=== PATIENT | male | born 1955 | race Caucasian/White ===

== ENCOUNTER 2024-01-25 16:49 | Inpatient (IN) ==
[2024-01-25 19:02] LABS: BASOPHILS # (AUTO) 0.1 X10^3/uL (0.0-0.1); EOSINOPHILS # (AUTO) 0.1 x10^3/uL (0.0-0.2); EOSINOPHILS % (AUTO) 0.8 % (0.9-2.9); HEMATOCRIT 36.5 % (42.0-54.0); HEMOGLOBIN 12.7 g/dL (13.5-18.0); LYMPHOCYTES # (AUTO) 2.1 X10^3/uL (1.3-2.9); LYMPHOCYTES % (AUTO) 27.1 % (21.0-51.0); MEAN CORPUSCULAR HGB CONC 34.8 g/dL (33.0-35.0); MEAN CORPUSCULAR VOLUME 97.7 fL (80.0-100.0); MEAN PLATELET VOLUME 6.5 fL (7.4-11.0); MONOCYTES # (AUTO) 0.7 x10^3/uL (0.3-0.8); MONOCYTES % (AUTO) 8.4 % (0.0-13.0); NEUTROPHILS # (AUTO) 4.9 x10^3/uL (2.2-4.8); NEUTROPHILS % (AUTO) 62.7 % (42.0-75.0); PLATELET COUNT 321 X10^3/uL (150.0-450.0); RED BLOOD COUNT 3.73 X10^6/uL (4.7-6.0); RED CELL DISTRIBUTION WIDTH 12.9 % (11.6-16.5); WHITE BLOOD COUNT 7.8 X10^3/uL (3.6-10.0)
[2024-01-25 19:08] LABS: BLOOD UREA NITROGEN 10 mg/dL (7-18); CALCIUM 8.6 mg/dL (8.5-10.1); CARBON DIOXIDE 31.4 mmol/L (21-32); CHLORIDE 97 mmol/L (98-107); CREATININE 0.86 mg/dL (0.70-1.30); GLUCOSE 91 mg/dL (65-99); SODIUM 132 mmol/L (136-145); eGFR NON BLACK RACES > 60 (>60)
[2024-01-25] MEDS ORDERED: NITROSTAT SL PRN (22:10)
[2024-01-25] MEDS ORDERED: PREDNISONE TAB 10 MG PO ONE (22:41)
[2024-01-25] MEDS ORDERED: LOVENOX INJ 80 MG SYR SC SCH (23:00)
[2024-01-25 23:08] VITALS: BMI 17.9
--- NOTE | 2024-01-25 23:12 | DR.H&P ---
H&P History & Physical for Day of: H&P Date: 01/25/24 Chief Complaint Chief Complaint: 77 male with rest pain both legs left greater than right and s/p right seen by me in late October 2023. History of failed left femoral popliteal bypass. CTA showed severe disease both superficial femoral arteries and diffuse occlusion of the trifurcation arteries of both legs . History of Present Illness History of Present Illness: as above Past Medical History Past Medical History: Coronary Artery Disease (hx of CABG), Dyslipidemia, GERD and Hypertension Past Surgical History Surgical History: Appendectomy, Ortho Surgery (total hip replacement ) and Other (failed left femoral popliteal artery bypass) Social History Does patient currently use any type of tobacco product: No Have you used tobacco products in the last 12 months: No Alcohol Use: None Medications Home Medications: see attached aspirin 81 mg daily Eliquis 5 mg BID Pletal 100 mg BID Lisinopril 20 mg daily Metoprolol Succinate 50 mg daily NTG 0.4 mg q 5 min PRN chest pain Pepcid 20 mg BID Atorvastin 80 mg po daily Allergies Allergies Allergy/AdvReac Type Severity Reaction Status Date / Time Iodinated Contrast Media Allergy Verified 01/25/24 22:29 [IVP DYE] Labs 01/25/24 18:50 01/25/24 18:50 Labs: Laboratory WBC 7.8 X10^3/uL (3.6-10.0) 01/25/24 18:50 RBC 3.73 X10^6/uL (4.7-6.0) L 01/25/24 18:50 Hgb 12.7 g/dL (13.5-18.0) L 01/25/24 18:50 Hct 36.5 % (42.0-54.0) L 01/25/24 18:50 MCV 97.7 fL (80.0-100.0) 01/25/24 18:50 MCH 34.0 pg (27.0-34.0) 01/25/24 18:50 MCHC 34.8 g/dL (33.0-35.0) 01/25/24 18:50 RDW 12.9 % (11.6-16.5) 01/25/24 18:50 Plt Count 321 X10^3/uL (150.0-450.0) 01/25/24 18:50 MPV 6.5 fL (7.4-11.0) L 01/25/24 18:50 Neut % (Auto) 62.7 % (42.0-75.0) 01/25/24 18:50 Lymph % (Auto) 27.1 % (21.0-51.0) 01/25/24 18:50 [place] % (Auto) 8.4 % (0.0-13.0) 01/25/24 18:50 Eos % (Auto) 0.8 % (0.9-2.9) L 01/25/24 18:50 Baso % (Auto) 1.0 % (0.2-1.0) 01/25/24 18:50 Neut # (Auto) 4.9 x10^3/uL (2.2-4.8) H 01/25/24 18:50 Lymph # (Auto) 2.1 X10^3/uL (1.3-2.9) 01/25/24 18:50 [place] # (Auto) 0.7 x10^3/uL (0.3-0.8) 01/25/24 18:50 Eos # (Auto) 0.1 x10^3/uL (0.0-0.2) 01/25/24 18:50 Baso # (Auto) 0.1 X10^3/uL (0.0-0.1) 01/25/24 18:50 Absolute Nucleated RBC 0.0 /100WBC 01/25/24 18:50 Sodium 132 mmol/L (136-145) L 01/25/24 18:50 Corrected Sodium TNP 01/25/24 18:50 Potassium 4.0 mmol/L (3.5-5.1) 01/25/24 18:50 Chloride 97 mmol/L (98-107) L 01/25/24 18:50 Carbon Dioxide 31.4 mmol/L (21-32) 01/25/24 18:50 BUN 10 mg/dL (7-18) 01/25/24 18:50 Creatinine 0.86 mg/dL (0.70-1.30) 01/25/24 18:50 Est GFR (MDRD) Af Amer > 60 (>60) 01/25/24 18:50 Est GFR (MDRD) Non-Af > 60 (>60) 01/25/24 18:50 Glucose 91 mg/dL (65-99) 01/25/24 18:50 Calcium 8.6 mg/dL (8.5-10.1) 01/25/24 18:50 Review of Systems Constitutional: See HPI Eyes: No Symptoms Reported ENT: No Symptoms Reported Respiratory: No Symptoms Reported Cardiovascular: See HPI Gastrointestinal: No Symptoms Reported Genitourinary: No Symptoms Reported Musculoskeletal: No Symptoms Reported Skin: No Symptoms Reported Neurological: No Symptoms Reported Physical Exam Vital Signs: Vital Signs Temperature 97.8 F Temperature 97.2 F Pulse Rate [Right Brachial] 64 Pulse Rate [Right Brachial] 65 Respiratory Rate 20 Respiratory Rate 18 Blood Pressure [Right Arm] 156/73 Blood Pressure [Right Arm] 129/72 O2 Sat by Pulse Oximetry 100 O2 Sat by Pulse Oximetry 96 Oriented: Normal, Time, Person and Place Eyes: Normal Ear: Normal Nose: Normal Throat: Normal Respiratory: Clear Throughout Cardiovascular: Normal and Other (palpable femoral pulses bilaterally, all pulses distally both legs absent ) : Normal Auscultation: Bowel Sounds: Normal Palpation: Normal Tenderness: Normal Skin: Normal Musculoskeletal: Normal Psychiatric: Normal Mood Description: Anxious Affect: Normal Speech Pattern: Clear Assessment/Plan (1) Atherosclerosis of [place] arteries of extremities with rest pain, left leg: Status: Acute Plan: Will begin therapuetic Lovenox, repeat CT angiogram with runoff (2) Atherosclerosis of [place] arteries of extremities with rest pain, right leg: Status: Acute Plan: as above (3) Essential (primary) hypertension: Status: Acute Plan: home medications (4) Hyperlipidemia: Status: Acute Plan: home medications (5) Gastro-esophageal reflux disease without esophagitis: Status: Acute Plan: home medications Review H&P Reviewed: Yes Patient was examined?: Yes
[2024-01-25] MEDS: PREDNISONE TAB 10 MG PO SCH (23:28)
[2024-01-25] MEDS: LOVENOX INJ 60 MG SYR SC SCH (23:45)
[2024-01-25] MEDS: LR 1,000 ML IV 1,000 ML IV SCH (23:47)
--- NOTE | 2024-01-26 04:59 | EKG ---
Test Reason : Protocol for procedure Blood Pressure : */* mmHG Vent. Rate : 71 BPM Atrial Rate : 71 BPM P-R Int : 140 ms QRS Dur : 82 ms QT Int : 382 ms P-R-T Axes : 72 -50 74 degrees QTc Int : 415 ms Sinus rhythm with marked sinus arrhythmia Left axis deviation Abnormal ECG No previous ECGs available Confirmed by Robb Tyler MD ([id number]) on 01/26/2024 5:47:40 AM Referred By: Confirmed By: Robb Tyler MD
[2024-01-26] MEDS: PREDNISONE TAB 10 MG PO SCH ×2 (05:23→11:50)
[2024-01-26] MEDS: LIPITOR TAB 80 MG PO SCH (10:08)
[2024-01-26] MEDS: ASPIRIN EC 81 MG PO SCH (10:08)
[2024-01-26] MEDS: PROTONIX TAB 40 MG PO SCH (10:08)
[2024-01-26] MEDS: ZESTRIL TAB 20 MG PO SCH (10:08)
[2024-01-26] MEDS: TOPROL XL PO SCH (10:09)
[2024-01-26] MEDS ORDERED: ZESTRIL TAB 20 MG ONE (11:24)
[2024-01-26] MEDS: LOVENOX INJ 80 MG SYR SC SCH (11:42)
[2024-01-26] MEDS: BENADRYL CAP 50 MG PO SCH (11:51)
--- NOTE | 2024-01-26 13:30 | CT ---
EXAM: CTA AORTA WITH RUNOFF HISTORY: CRITICAL ISCHEMIA LLE; COMPARISON: November 17, 2019 TECHNIQUE: CTA abdomen and pelvis with runoff without and with contrast was performed initial noncontrast phase is followed by an arterial contrast bolus. Imaging was obtained from the upper abdomen to the level of the foot and ankle. The sequences are reconstructed with multi planer reformats as well as volume rendered MIP and/or 3D reconstruction. FINDINGS: Noncontrast phase generalized calcified atherosclerosis of the aorta, mesenteric and iliofemoral trib utaries. Nonobstructing renovascular calcifications associated with the right kidney. Multiple cons ecutive stents comprising a left fem-pop bypass are observed. Atherosclerotic plaque is demonstrated within the left lower extremity from the common femoral artery through the distal superficial femora l artery. Surgical clips are also demonstrated within the left popliteal fossa. No free fluid or fr ee air is identified. CTA postcontrast phase: Visualized portions of the abdomen and pelvis reveal moderate stool burden of the colon which should be correlated clinically for constipation. No free fluid is identified. No acute inflammatory changes are observed. There is no abnormal bowel wall thickening identified. 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 There is circumferential plaque within the SMA and branches resul ting in multifocal stenosis of [id number] severity within the field of view no greater than 50% . The celiac axis is not fully imaged. No evidence of aortic occlusion. Imaging occurs below the level of the renal arteries. Plaque is contiguous with bilateral common iliac arteries, internal and external iliac arteries. Right iliac arteries: Severe generalized calcification with a widely patent common iliac artery stent and less than 50% stenosis distal to the stent. 50-69% stenosis of the internal iliac artery and 50- 69% stenosis distally along the external iliac artery. Left iliac arteries: Severe generalized calcification with a widely patent common iliac artery stent. 50-69% stenosis throughout the internal iliac artery. Less than 50% stenosis of the external iliac a rtery. RIGHT LOWER EXTREMITY: Common femoral artery: Severe atherosclerosis with 50-69% stenosis just above the vessel bifurcation. Profunda femoral artery: No significant abnormality. Superficial femoral artery: The majority of the vessel is occluded. Reconstitution of flow along the distal 3rd of the thigh via collaterals. Popliteal artery: Mild atherosclerosis resulting in less than 50% stenosis. Anterior tibial artery: Focal greater than 70% stenosis near the vessel origin. Vessel appears paten t through the distal leg. There is limited visualization of contrast within the most distal aspect o f the vessel as it continues into the dorsalis pedis. Tibioperoneal trunk: Moderately calcified with 50-69% stenosis. Posterior tibial artery: Moderate calcification along the proximal 3rd of the vessel resulting in 50- 69% stenosis. Multifocal plaque accumulation through the foot. The vessel is patent. Peroneal artery: Proximal branch appears adequately opacify via contrast. There is tapering of the v essel and inconspicuous contrast opacification within the distal vessel just above the ankle. Additional findings: Expected positioning of a right hip arthroplasty. LEFT LOWER EXTREMITY: Common femoral artery: Severe atherosclerosis resulting in less than 50% stenosis. Profunda femoral artery: Mild calcification resulting in less than 50% stenosis. Superficial femoral artery: Occlusion of the [place] SFA as well occlusion of the majority of a femora l-popliteal artery bypass graft Popliteal artery: Occluded. Anterior tibial artery: Occluded. Tibioperoneal trunk: Occluded. Posterior tibial artery: Occluded. Peroneal artery: Occluded. Additional findings: None. No gas within the soft tissues. No evidence of edema. IMPRESSION: Chronic occlusion of the majority of the [place] arteries of the left lower extremity without distal c onstitution of flow. The fem-pop bypass graft is also occluded. Occlusion of the majority of the right superficial femoral artery with distal reconstitution of flow through deep collaterals. Single-vessel runoff of the right lower extremity through the posterior ti bial artery. Proximal DAE and peroneal artery segments are patent proximally but distal segments shadia ear diminutive with tapering of contrast opacification. Additional findings as detailed above. THIS IS AN ELECTRONICALLY VERIFIED FINAL REPORT 01/26/2024 1:27 PM - Electronically signed by Lemuel Jean MD
[2024-01-26] MEDS: MILK OF MAGNESIA PO SCH (16:05)
--- NOTE | 2024-01-26 17:53 | NOTE.SOAP ---
Soap Note Note for Day of Date of Exam: 01/26/24 Subjective Data Subjective Data: Patient had repeat CTA of aorta with b/l runoff and it shows [place] vessels and left fem-pop bypass left leg to be occluded Objective Data Temperature: 98.0 F Pulse Rate: 93 Respiratory Rate: 20 Blood Pressure: 114/64 O2 Sat by Pulse Oximetry: 98 Objective Data: No palpable pulses either ankle , no wounds either leg. Assessment Assessment: b/l severe limb threatening ischemia . Plan Plan: Will plan aortogram and arteriogram left leg as it is the most symptomatic . Consent obtained
[2024-01-26] MEDS: COLACE CAP 100 MG PO SCH (21:17)
--- NOTE | 2024-01-27 06:24 | RAD ---
EXAM: CHEST, 1 VIEW HISTORY: PRE OP-LEFT LOWER LEG CRITICAL ISCHEMIA ; COPD, CAD, HTN SX: APPY, TRIPLE BYPASS COMPARISON: No relevant prior studies were available for comparison at the time of interpretation. TECHNIQUE: CHEST, 1 VIEW FINDINGS: Chest: Lines and tubes: None Mediastinum: Median sternotomy wires are present. Cardiac shadow is normal in size. Pulmonary vessels: No pulmonary vascular congestion. Lung jerome: No suspicious airspace opacity. Pleura: No effusion. No pneumothorax. Bones and soft tissues: No acute osseous or soft tissue abnormality. IMPRESSION: 1. No acute cardiopulmonary abnormality THIS IS AN ELECTRONICALLY VERIFIED FINAL REPORT 01/27/2024 6:21 AM - Electronically signed by Eddi Hayden MD
[2024-01-27] MEDS: PREDNISONE TAB 20 MG PO ONE (09:20)
[2024-01-27] MEDS: ZESTRIL TAB 20 MG ONE (09:20)
[2024-01-27] MEDS: NS 100 ML IV 100 ML ONE (09:49)
[2024-01-27] MEDS: LR 1,000 ML IV 1,000 ML IV ONE (09:49)
[2024-01-27] MEDS: ANCEF VIAL 1 GRAM ONE (09:49)
[2024-01-27] MEDS: MARCAINE 0.5% ONE (10:07)
[2024-01-27] MEDS: HEPARIN SODIUM IN D5W 75,000 UNITS/1,500 ML BAG ONE (10:07)
[2024-01-27] MEDS: VERSED ONE (10:10)
[2024-01-27] MEDS: DIPRIVAN VIAL 20 ML ONE ×2 (10:11→10:52)
[2024-01-27] MEDS ORDERED: KETAMINE HCL ONE (10:15)
[2024-01-27] MEDS: SOLU MEDROL 500 MG ONE (10:35)
[2024-01-27] MEDS: HEPARIN SODIUM INJ 5000 UNITS ONE (10:36)
--- NOTE | 2024-01-27 11:43 | OR.IMMED ---
IMMEDIATE POST-OP NOTE Immediate Post-Op Note Date of surgery/procedure: 01/27/24 Pre-Op Diagnosis: critical ischemia left leg , all arteries below fem pop bypass occluded Post-Op Diagnosis: severe stenosis of stent in distal fem- pop bypass at adductor canal, stenosis left iliac stent Procedure: diagnostic aortogram, arteriogram left leg, atherectomy and drug eluting stenting of the left adductor canal stenosis, angioplasty left common iliac artery stent Description of Procedure: dictated Surgeon/Med Asst: Naty Findings: severe stenosis of stent in distal femoral popliteal bypass ( Gortex) and in popliteal artery , stenosis of left common iliac artery stent. Estimated Blood Loss: < 50 cc Complications: none Progress Notes: to floor, begin diet and home meds, discharge home later today.
[2024-01-27] MEDS: FENTANYL VIAL INJ 100 mcg ONE (11:49)
[2024-01-27] MEDS: VISIPAQUE 100 ML ONE (11:49)
[2024-01-27] MEDS: VISIPAQUE 50 ML ONE (11:50)
[2024-01-27] MEDS: PERCOCET TAB 5/325 MG PO PRN (19:14)
--- NOTE | 2024-01-27 20:35 | DR.OPNOTE ---
OP NOTE Pre-Op Diagnosis: critical ischemia left leg Post-Op Diagnosis: same Procedure Date Date Of Procedure: 01/27/24 Procedure: PROCEDURE : DIAGNOSTIC AORTGRAM, ARTERIOGRAM LEFT LEG, ATHERECTOMY AND DRUG ELUTING STENT OF DISTAL STENT IN FEMORAL POPLITEAL ARTERY BYPASS AND NEAR TOTAL OCCLUSION OF [place] TRIBE POLITEAL ARTERY JUST BELOW THE ADDUCTOR CANAL AND ANGIOPLASTY LEFT COMMON ILIAC ARTERY STENT NARRATIVE : The patient was taken to the operative suite and placed in the supine position. The right groin and entire left leg were prepped and draped in sterile fashion. The patient was given intravenous sedation supervised by myself. Time out for the procedure obtained. Ultrasound used to identify the right femoral artery and the skin overlying it infiltrated with 0.5% Marcaine. Ultrasound then used to guide puncture of the right femoral artery and a 0.012 inch guide wire was placed. Incision made over the guide wire at the skin edge with a # 11 knife blade and a micro sheath placed over the guide wire into the right femoral artery The small guidewire exchanged for a 0.035 inch Advantage glide wire and the micro sheath exchanged for a 5 Fr vascular sheath. Patient given 5000 units of intravenous heparin. Omni catheter was placed over the guide wire into the aorta and diagnostic aortogram carried out with the power injector showing bilateral iliac artery stents and severe stenosis of the proximal left common iliac artery . Omni catheter was used to steer the guide wire down the left common iliac artery to the distal left external iliac artery . Omni catheter was exchanged for a Ridg[place] catheter and sequential arteriograms carried out of the left lower extremity showing completely occcluded [place] left superficial femoral artery with intact left Gortex femoral popliteal bypass graft with severe stenosis at the distal end of the bypass graft where a stent had been placed as well as severe stenosis, near total occlusion of the [place] popliteal artery just beyond the graft inside the bypass conduit. The tibial peroneal trunk is normal. The anterior tibial artery is normal all the way to the ankle. Both the peroneal and posterior tibial arteries are occluded after takeoff with no reconstitution of either of them in an antegrade fashion. There was retrograde filling of the left posterior tibial artery. The 5 Fr sheath in the right groin then exchanged for a 7 Fr Catapult destination sheath which was parked in the mid portion of the femoral popliteal bypass graft .Ridgely catheter and the guide wire were used to traverse the arteries of the left leg ultimately ending in the left proximal peroneal artery . This was selective catheterization. 0.035 inch wire removed and exchanged for a 0.014 inch wire. Over this wire we placed the Jet Stream atherectomy device and performed atherectomy of the stent in the distal femoral popliteal bypass graft and the [place] popliteal artery. At this point we placed an Sudha 6x 60 mm drug eluting stent over the distal stent in the the popliteal artery . This stent was balloon dilated with a Sheldon 6x 100 mm angioplasty balloon. At the completion of this a follow up arteriogram showed good result .The sheath pulled back into the right common iliac artery and over the 0.014 inch wire the proximal left common iliac artery stent was balloon dilated with the 6x 100 mm Sheldon balloon. Repeat aortogram here showed excellent results . All wires and devices removed. The destination sheath exchanged for an Angioseal device used to close the puncture of the right femoral artery. Dressing applied to the left groin. The patient taken to [facility] in good condition. Type of Anesthesia: Local (0.5% Marcaine) Anesthesia Comment: plus MAC Findings: completely occluded left superficial femoral artery with intact left Gortex femoral -popliteal artery, severe stenosis of stent in the distal left fem-pop bypass and near complete occlusion of left popliteal artery with runoff to left ankle via an intact left anterior tibial artery with both left peroneal and left posterior tibial arteries occluded after takeoff with no reconstitution in antegrade fashion, reconstitution of the left posterior tibial artery via the left anterior tibial artery in retrograde fashion. Severe stenosis of the left common iliac artery stent. Type of Fluids Used:: Lactated Ringers Total Amount of Fluid Infused:: 500 cc Urine output: 80 cc EBL: < 50 cc Hardware: Euvia 6mmx 60 mm drug eluting stent Complications:: none Needle/Sponge Count:: correct Disposition/Condition: Pt. tolerated procedure without difficulty. Taken to [facility] in stable condition.
[2024-01-28] MEDS: ZESTRIL TAB 20 MG ONE (09:22)
[2024-01-28] MEDS ORDERED: TYLENOL 325 MG TAB PO PRN (13:42)
[2024-01-28] MEDS: CATAPRES TAB 0.1 MG PO ONE (13:47)
--- NOTE | 2024-01-28 18:05 | NOTE.SOAP ---
Soap Note Note for Day of Date of Exam: 01/28/24 Subjective Data Subjective Data: After arterial intervention left leg, all rest pain resolved on left , Still with right leg rest pain and CTA shows complete total occlusion of the right SFA. Had some hypertension earlier, resolved with his regular anti- hypertensives and some po Clonidine . Objective Data Temperature: 98.1 F Pulse Rate: 81 Respiratory Rate: 18 Blood Pressure: 134/65 O2 Sat by Pulse Oximetry: 93 Objective Data: biphasic flow left anterior tibial artery Needle stick right groin is healing Assessment Assessment: s/p revascularization left leg for escalating ischemic rest pain. Plan Plan: Continue therapeutic Lovenox and will plan right leg arterial intervention on 01/31/2024
[2024-01-29] MEDS ORDERED: ZOFRAN INJ 4 MG VIAL IVP PRN (07:57)
[2024-01-29] MEDS: ZESTRIL TAB 20 MG ONE ×2 (09:36→18:02)
--- NOTE | 2024-01-29 11:41 | NOTE.SOAP ---
Soap Note Note for Day of Date of Exam: 01/29/24 Subjective Data Subjective Data: S/P revascularization left leg with resolution of rest pain. For revascularization right leg on 01/31/2024. BP systolic has been > 170 mm of HG. Objective Data Temperature: 97.1 F Pulse Rate: 81 Respiratory Rate: 20 Blood Pressure: 176/88 O2 Sat by Pulse Oximetry: 93 Objective Data: Left foot warm with biphasic AT doppler signal Assessment Assessment: resolved left leg critical ischemia, plan for right leg revascularization in 2 days Plan Plan: as above , increase lisinopril to 40 mg daily
[2024-01-29] MEDS: ZESTRIL TAB 20 MG PO ONE (13:44)
[2024-01-30] MEDS ORDERED: ZESTRIL TAB 20 MG ONE (08:32)
[2024-01-30] MEDS: ZESTRIL TAB 20 MG PO SCH (08:45)
--- NOTE | 2024-01-30 18:30 | NOTE.SOAP ---
Soap Note Note for Day of Date of Exam: 01/30/24 Subjective Data Subjective Data: S/P revascularization left leg with stent in distal fem -pop bypass. rest pain left leg resolved . For revascularization right leg complete right superficial femoral artery. Objective Data Temperature: 98.0 F Pulse Rate: 70 Respiratory Rate: 18 Blood Pressure: 178/87 O2 Sat by Pulse Oximetry: 91 Objective Data: warm left leg , biphasic dopler signal left AT , cool right leg with resrt pain Assessment Assessment: critical ischemia left leg resolved, present critical ischemia right leg Plan Plan: aortogram, arteriogram right leg , possible right superficial femoral artery atherectomy, possible angioplasty, possible stenting
[2024-01-30] MEDS: HIBICLENS WASH EXT ONE (21:18)
[2024-01-31 06:15] LABS: BASOPHILS % (AUTO) 0.4 % (0.2-1.0); EOSINOPHILS # (AUTO) 0.2 x10^3/uL (0.0-0.2); EOSINOPHILS % (AUTO) 1.6 % (0.9-2.9); HEMATOCRIT 34.9 % (42.0-54.0); HEMOGLOBIN 12.1 g/dL (13.5-18.0); LYMPHOCYTES # (AUTO) 1.9 X10^3/uL (1.3-2.9); LYMPHOCYTES % (AUTO) 19.5 % (21.0-51.0); MEAN CORPUSCULAR HEMOGLOBIN 34.1 pg (27.0-34.0); MEAN CORPUSCULAR HGB CONC 34.8 g/dL (33.0-35.0); MEAN CORPUSCULAR VOLUME 97.9 fL (80.0-100.0); MEAN PLATELET VOLUME 7.3 fL (7.4-11.0); MONOCYTES # (AUTO) 0.9 x10^3/uL (0.3-0.8); MONOCYTES % (AUTO) 9.6 % (0.0-13.0); NEUTROPHILS # (AUTO) 6.6 x10^3/uL (2.2-4.8); NEUTROPHILS % (AUTO) 68.9 % (42.0-75.0); PLATELET COUNT 300 X10^3/uL (150.0-450.0); RED BLOOD COUNT 3.56 X10^6/uL (4.7-6.0); RED CELL DISTRIBUTION WIDTH 12.8 % (11.6-16.5); WHITE BLOOD COUNT 9.6 X10^3/uL (3.6-10.0)
[2024-01-31 06:23] LABS: ALANINE AMINOTRANSFERASE 27 Units/L (12-78); ALKALINE PHOSPHATASE 30 Units/L (46-116); ASPARTATE AMINO TRANSFERASE 15 Units/L (15-37); BLOOD UREA NITROGEN 4 mg/dL (7-18); CALCIUM 8.4 mg/dL (8.5-10.1); CARBON DIOXIDE 30.7 mmol/L (21-32); COR CA(FOR HYPOALB) 9.2 mg/dL (8.5-10.1); CREATININE 0.65 mg/dL (0.70-1.30); GLUCOSE 94 mg/dL (65-99); TOTAL PROTEIN 6.2 g/dL (6.4-8.2); eGFR NON BLACK RACES > 60 (>60)
[2024-01-31 06:58] LABS: CHLORIDE 99 mmol/L (98-107); POTASSIUM 3.4 mmol/L (3.5-5.1); SODIUM 135 mmol/L (136-145)
[2024-01-31] MEDS ORDERED: ZESTRIL TAB 20 MG ONE (08:09)
[2024-01-31 12:44] VITALS: O2SAT 97
[2024-01-31] MEDS: NS 100 ML IV 100 ML ONE (12:58)
[2024-01-31] MEDS: ANCEF VIAL 1 GRAM ONE (12:58)
[2024-01-31] MEDS: VERSED ONE (13:12)
[2024-01-31] MEDS: LR 1,000 ML IV 1,000 ML IV ONE (13:12)
[2024-01-31] MEDS: FENTANYL VIAL INJ 100 mcg ONE (13:12)
[2024-01-31] MEDS: DIPRIVAN VIAL 20 ML ONE ×4 (13:12→14:50)
[2024-01-31] MEDS: SOLU MEDROL 500 MG ONE (13:17)
[2024-01-31] MEDS: HEPARIN SODIUM IN D5W 75,000 UNITS/1,500 ML BAG ONE (13:28)
[2024-01-31] MEDS: MARCAINE 0.5% ONE (13:28)
[2024-01-31] MEDS: HEPARIN SODIUM INJ 5000 UNITS ONE ×2 (13:31→14:31)
[2024-01-31] MEDS: NS 1,000 ML IV 1,000 ML ONE (14:11)
--- NOTE | 2024-01-31 15:39 | OR.IMMED ---
IMMEDIATE POST-OP NOTE Immediate Post-Op Note Date of surgery/procedure: 01/31/24 Pre-Op Diagnosis: critical ischemia right leg Post-Op Diagnosis: same Procedure: aortogram , arteriogram right leg, atherectomy and drug eluting stent placement right superficial femoral artery Description of Procedure: dictated Surgeon/Motor Carrier Inspector: Naty Findings: complete occlusion right superficial femoral artery with reconstitution of right popliteal artery with 3 vessel runoff to the right foot, posterior tibial artety dominant . Estimated Blood Loss: 150 cc Complications: none Progress Notes: return to floor, begin diet, slowly deflate tibial band over right posterior tibial artery puncture , hopefully discharge home later tonight
[2024-01-31 17:36] VITALS: BP 160/78; PULSE 70; TEMP 97.8
--- NOTE | 2024-01-31 17:44 | W.DIS.FURT ---
Summary of Discharge Discharge Summary of Date Date of Exam: 01/31/24 Admission Date Date of Admission: 01/25/24 Admission Diagnosis Hospital Course: This is a 68 year old male with known significant peripheral vascular disease with bilateral lower extremity rest pain and CT scan showing occluded left Gortex femoral popliteal bypass graft and occluded right superficial femoral artery with poor runoff both legs. Patient presented to the office on the date of admission ,January 24, with increasing pain of both lower extremities which was unrelenting. He was admitted on January and placed on therapeutic Lovenox. Repeat CT scans showed essentially the same findings. On January he underwent arteriogram of the left leg showing an occluded distal aspect of the left the femoral popliteal bypass graft which required stenting of the distal graft and the [place]vik popliteal artery . Patient's only run off was the anterior tibial artery and he did very well with resolution of the rest pain of the left leg. He was maintained on therapeutic Lovenox and today ,January ,he underwent atherectomy and Drug coated stenting of the completely occluded right superficial femoral artery and noted to have 3 vessel runoff. He has done well. He will be discharged home on his usual medications including aspirin and Eliquis . He will follow up with me in 1 week. Vital Signs: Vital Signs (72 hours) 01/28/24 18:04 01/29/24 11:41 01/30/24 18:27 Temperature 98.1 F 97.1 F L 98.0 F Pulse Rate 81 81 70 Pulse Rate [Right Brachial] Respiratory Rate 18 20 18 Blood Pressure 134/65 176/88 178/87 Blood Pressure [Left Arm] Blood Pressure [Right Arm] O2 Sat by Pulse Oximetry 93 L 93 L 91 L Oxygen Delivery Method Oxygen Flow Rate FIO2% 01/28/24 19:00 01/28/24 19:46 01/28/24 20:08 Temperature 97.6 F Pulse Rate Pulse Rate [Right Brachial] 63 Respiratory Rate 18 Blood Pressure Blood Pressure [Left Arm] 143/72 Blood Pressure [Right Arm] O2 Sat by Pulse Oximetry 94 L Oxygen Delivery Method Room Air Room Air Nasal Cannula Oxygen Flow Rate 2 FIO2% 28 01/28/24 23:26 01/28/24 23:29 01/29/24 00:27 Temperature 97.6 F Pulse Rate Pulse Rate [Right Brachial] 70 Respiratory Rate 18 18 Blood Pressure Blood Pressure [Left Arm] 180/82 150/71 Blood Pressure [Right Arm] O2 Sat by Pulse Oximetry 95 Oxygen Delivery Method Room Air Oxygen Flow Rate FIO2% 01/29/24 00:26 01/29/24 04:00 01/29/24 04:40 Temperature 97.5 F L Pulse Rate Pulse Rate [Right Brachial] 60 Respiratory Rate 17 18 Blood Pressure Blood Pressure [Left Arm] 171/75 162/84 Blood Pressure [Right Arm] O2 Sat by Pulse Oximetry 96 Oxygen Delivery Method Room Air Oxygen Flow Rate FIO2% 01/29/24 08:00 01/29/24 09:33 01/29/24 12:00 Temperature 97.1 F L 97.5 F L Pulse Rate Pulse Rate [Right Brachial] 81 63 Respiratory Rate 20 18 Blood Pressure Blood Pressure [Left Arm] 176/88 173/82 Blood Pressure [Right Arm] O2 Sat by Pulse Oximetry 92 L 96 Oxygen Delivery Method Room Air Room Air Room Air Oxygen Flow Rate FIO2% 01/29/24 16:00 01/29/24 19:00 01/29/24 20:00 Temperature 97.6 F 98.1 F Pulse Rate Pulse Rate [Right Brachial] 76 75 Respiratory Rate 18 18 Blood Pressure Blood Pressure [Left Arm] 166/87 180/88 Blood Pressure [Right Arm] O2 Sat by Pulse Oximetry 91 L 96 Oxygen Delivery Method Room Air Room Air Room Air Oxygen Flow Rate FIO2% 01/29/24 20:01 01/29/24 23:31 01/29/24 20:10 Temperature 98.2 F Pulse Rate Pulse Rate [Right Brachial] 65 Respiratory Rate 18 Blood Pressure Blood Pressure [Left Arm] 172/77 177/86 Blood Pressure [Right Arm] O2 Sat by Pulse Oximetry 97 Oxygen Delivery Method Room Air Nasal Cannula Oxygen Flow Rate 2 FIO2% 28 01/30/24 04:00 01/30/24 08:00 01/30/24 07:00 Temperature 98.1 F 98.9 F Pulse Rate Pulse Rate [Right Brachial] 85 63 Respiratory Rate 18 18 Blood Pressure Blood Pressure [Left Arm] 162/78 177/86 Blood Pressure [Right Arm] O2 Sat by Pulse Oximetry 96 94 L Oxygen Delivery Method Room Air Room Air Room Air Oxygen Flow Rate FIO2% 01/30/24 09:10 01/30/24 12:00 01/30/24 16:00 Temperature 98.1 F 98.0 F Pulse Rate Pulse Rate [Right Brachial] 74 70 Respiratory Rate 19 18 Blood Pressure Blood Pressure [Left Arm] 162/74 178/87 Blood Pressure [Right Arm] O2 Sat by Pulse Oximetry 95 91 L Oxygen Delivery Method Room Air Room Air Room Air Oxygen Flow Rate 2 FIO2% 28 01/30/24 19:00 01/30/24 20:00 01/30/24 21:30 Temperature 97.6 F Pulse Rate Pulse Rate [Right Brachial] 77 Respiratory Rate 18 Blood Pressure Blood Pressure [Left Arm] 167/82 Blood Pressure [Right Arm] O2 Sat by Pulse Oximetry 95 Oxygen Delivery Method Room Air Room Air Room Air Oxygen Flow Rate FIO2% 01/31/24 00:00 01/31/24 04:00 01/31/24 07:00 Temperature 97.7 F 98.2 F Pulse Rate Pulse Rate [Right Brachial] 77 80 Respiratory Rate 18 16 Blood Pressure Blood Pressure [Left Arm] 179/97 177/91 Blood Pressure [Right Arm] O2 Sat by Pulse Oximetry 98 97 Oxygen Delivery Method Room Air Room Air Room Air Oxygen Flow Rate FIO2% 01/31/24 08:00 01/31/24 12:00 01/31/24 08:40 Temperature 97.4 F L 97.2 F L Pulse Rate Pulse Rate [Right Brachial] 80 71 Respiratory Rate 19 18 Blood Pressure Blood Pressure [Left Arm] 187/88 Blood Pressure [Right Arm] 183/93 O2 Sat by Pulse Oximetry 97 94 L Oxygen Delivery Method Room Air Room Air Room Air Oxygen Flow Rate FIO2% 01/31/24 12:43 01/31/24 16:10 01/31/24 16:35 Temperature 97.7 F 97.9 F Pulse Rate 65 69 61 Pulse Rate [Right Brachial] Respiratory Rate 18 20 18 Blood Pressure 177/96 156/84 158/61 Blood Pressure [Left Arm] Blood Pressure [Right Arm] O2 Sat by Pulse Oximetry 97 Oxygen Delivery Method Room Air Oxygen Flow Rate FIO2% 01/31/24 17:00 Temperature 97.7 F Pulse Rate 62 Pulse Rate [Right Brachial] Respiratory Rate 18 Blood Pressure 165/85 Blood Pressure [Left Arm] Blood Pressure [Right Arm] O2 Sat by Pulse Oximetry Oxygen Delivery Method Oxygen Flow Rate FIO2% Labs: Laboratory Last Values WBC 9.6 X10^3/uL (3.6-10.0) 01/31/24 05:10 RBC 3.56 X10^6/uL (4.7-6.0) L 01/31/24 05:10 Hgb 12.1 g/dL (13.5-18.0) L 01/31/24 05:10 Hct 34.9 % (42.0-54.0) L 01/31/24 05:10 MCV 97.9 fL (80.0-100.0) 01/31/24 05:10 MCH 34.1 pg (27.0-34.0) H 01/31/24 05:10 MCHC 34.8 g/dL (33.0-35.0) 01/31/24 05:10 RDW 12.8 % (11.6-16.5) 01/31/24 05:10 Plt Count 300 X10^3/uL (150.0-450.0) 01/31/24 05:10 MPV 7.3 fL (7.4-11.0) L 01/31/24 05:10 Neut % (Auto) 68.9 % (42.0-75.0) 01/31/24 05:10 Lymph % (Auto) 19.5 % (21.0-51.0) L 01/31/24 05:10 [place] % (Auto) 9.6 % (0.0-13.0) 01/31/24 05:10 Eos % (Auto) 1.6 % (0.9-2.9) 01/31/24 05:10 Baso % (Auto) 0.4 % (0.2-1.0) 01/31/24 05:10 Neut # (Auto) 6.6 x10^3/uL (2.2-4.8) H 01/31/24 05:10 Lymph # (Auto) 1.9 X10^3/uL (1.3-2.9) 01/31/24 05:10 [place] # (Auto) 0.9 x10^3/uL (0.3-0.8) H 01/31/24 05:10 Eos # (Auto) 0.2 x10^3/uL (0.0-0.2) 01/31/24 05:10 Baso # (Auto) 0.0 X10^3/uL (0.0-0.1) 01/31/24 05:10 Absolute Nucleated RBC 0.1 /100WBC 01/31/24 05:10 Sodium 135 mmol/L (136-145) L 01/31/24 05:10 Corrected Sodium TNP 01/31/24 05:10 Potassium 3.4 mmol/L (3.5-5.1) L 01/31/24 05:10 Chloride 99 mmol/L (98-107) 01/31/24 05:10 Carbon Dioxide 30.7 mmol/L (21-32) 01/31/24 05:10 BUN 4 mg/dL (7-18) L 01/31/24 05:10 Creatinine 0.65 mg/dL (0.70-1.30) L 01/31/24 05:10 Est GFR (MDRD) Af Amer > 60 (>60) 01/31/24 05:10 Est GFR (MDRD) Non-Af > 60 (>60) 01/31/24 05:10 Glucose 94 mg/dL (65-99) 01/31/24 05:10 Calcium 8.4 mg/dL (8.5-10.1) L 01/31/24 05:10 Corrected Calcium 9.2 mg/dL (8.5-10.1) 01/31/24 05:10 Total Bilirubin 0.40 mg/dL (0.2-1.0) 01/31/24 05:10 AST 15 Units/L (15-37) 01/31/24 05:10 ALT 27 Units/L (12-78) 01/31/24 05:10 Alkaline Phosphatase 30 Units/L (46-116) L 01/31/24 05:10 Total Protein 6.2 g/dL (6.4-8.2) L 01/31/24 05:10 Albumin 3.0 g/dL (3.4-5.0) L 01/31/24 05:10 Globulin 3.2 g/dL (2.5-4.5) 01/31/24 05:10 Albumin/Globulin Ratio 0.9 Ratio (1.1-2.1) L 01/31/24 05:10 Blood Type A POSITIVE 01/31/24 05:10 Antibody Screen Negative 01/31/24 05:10 Reason For Visit: LEFT LOWER LEG CRITICAL ISHEMIA Discharge Diagnosis All Active Problems (Updated 01/25/24 @ 23:08 by Angelo Alfonso) Gastro-esophageal reflux disease without esophagitis (Acute) Hyperlipidemia (Acute) Essential (primary) hypertension (Acute) Atherosclerosis of [place]vik arteries of extremities with rest pain, right leg (Acute) Atherosclerosis of [place]vik arteries of extremities with rest pain, left leg (Acute) Plan of Treatment: Continue with present treatment and follow up plan. Pt is to keep follow up appointment as instructed and take medications as ordered. Discharge Medications Discharge Medications: Iodinated Contrast Media [IVP DYE] Allergy (Verified 01/25/24 22:29) CONTINUE taking the following medications apixaban 5 mg tablet (Eliquis) 5 mg PO BID 01/26/24 [History] aspirin 81 mg tablet,delayed release 81 mg PO DAILY 01/26/24 [History] atorvastatin 80 mg tablet 80 mg PO QDAY 01/26/24 [History] budesonide 160 mcg-glycopyr 9 mcg-formot 4.8 mcg/actuation HFA inhaler (Breztri Aerosphere) 2 inh inhalation BID 01/26/24 [History] cilostazol 50 mg tablet 50 mg PO BID 01/26/24 [History] lisinopril 20 mg tablet 20 mg PO QDAY 01/26/24 [History] metoprolol succinate 50 mg tablet,extended release 24 hr 50 mg PO QDAY 01/26/24 [History] tiotropium 2.5 mcg-olodaterol 2.5 mcg/actuation mist for inhalation (Stiolto Respimat) 1 inh inhalation DAILY 01/26/24 [History] Discharge Disposition Assessment: see hospital course Discharge Plan Discharge Plan Hospital Course: This is a 68 year old male with known significant peripheral vascular disease with bilateral lower extremity rest pain and CT scan showing occluded left Gortex femoral popliteal bypass graft and occluded right superficial femoral ar [place] with poor runoff both legs. Patient presented to the office on the date of admission ,January 24, with increasing pain of both lower extremities which was unrelenting. He was admitted on January and placed on therapeutic Lovenox. Repeat CT scans showed essentially the same findings. On January he underwent arteriogram of the left leg showing an occluded distal aspect of the left the femoral popliteal bypass graft which required stenting of the distal graft and the [place] popliteal artery . Patient's only run off was the anterior tibial artery and he did very well with resolution of the rest pain of the left leg. He was maintained on therapeutic Lovenox and today ,January the ,he underwent atherectomy and Drug coated stenting of the completely occluded right superficial femoral artery and noted to have 3 vessel runoff. He has done well. He will be discharged home on his usual medications including aspirin and Eliquis . He will follow up with me in 1 week. Patient Disposition: 01 HOME, SELF-CARE Condition: Stable Health Concerns: Post Hospitalization: new medications and changes needed to prevent readmission or further decline. Pt educated and given instructions on all concerns. Care Plan Goals: resolution of LE rest pain and increase in activity Plan of Treatment: Continue with present treatment and follow up plan. Pt is to keep follow up appointment as instructed and take medications as ordered. Assessment: see hospital course Prescription drug monitoring program results: PDMP reviewed and no concerns identified Prescriptions: Continued atorvastatin 80 mg tablet 80 mg PO QDAY cilostazol 50 mg tablet 50 mg PO BID metoprolol succinate 50 mg tablet extended release 24 hr 50 mg PO QDAY lisinopril 20 mg tablet 20 mg PO QDAY aspirin 81 mg Tablet,Delayed Release (Dr/Ec) 81 mg PO DAILY Eliquis 5 mg tablet 5 mg PO BID Stiolto Respimat 2.5-2.5 mcg/actuation mist 1 inh inhalation DAILY Breztri Aerosphere 160-9-4.8 mcg/actuation HFA aerosol inhaler 2 inh INHALATION BID Follow ups/Referrals Follow ups/Referrals: Angelo Alfonso [Primary Care Provider] - 1 WEEK Instructions Instructions: Endovascular Therapy for Peripheral Vascular Disease, Care After Stand Alone Forms: Excuse From Work or School, Post Hospital Follow Up Care
[2024-01-31 18:36] VITALS: RESP 17
== END 2024-01-31 19:20 | disposition home or self-care (01) | DRG 272 ==
LOC: MED/SURG 17:52
PROVIDERS: ADMIT Surgery; ATTEND Surgery
DX: R94.31 Abnormal electrocardiogram [ECG] [EKG]; I10 Essential (primary) hypertension; I70.222 Atherosclerosis of native arteries of extremities with rest pain, left leg; Z01.810 Encounter for preprocedural cardiovascular examination; K21.9 Gastro-esophageal reflux disease without esophagitis; E78.5 Hyperlipidemia, unspecified

== ENCOUNTER 2024-08-25 14:32 | Inpatient (IN) ==
[2024-08-25 17:15] VITALS: BMI 18.1
[2024-08-25] MEDS: DILAUDID INJ IVP PRN (17:51)
[2024-08-25] MEDS ORDERED: PROVENTIL NEB TX 0.083% 2.5MG/ 3ML NEB PRN (18:12)
[2024-08-25] MEDS ORDERED: VENTOLIN or PROAIR HFA IN PRN (20:34)
--- NOTE | 2024-08-25 20:34 | DR.H&P ---
H&P History & Physical for Day of: H&P Date: 08/25/24 Chief Complaint Chief Complaint: Painful left leg with acute onset yesterday History of Present Illness History of Present Illness: 68 year old male with history of peripheral vascular disease who has had arterial invention of both legs. He required intervention of the left-sided femoral popliteal bypass graft with setnting of the graft and stenting of the left [place] popliteal artery as well atherectomy and angioplsty of the right superficial femoral . Both arterial interventions performed in 01/2024. Presented to the emergency room in [place], [place] complaining of acute onset of pain of the left leg. CT angiogram showed occlusion of the left femoral popliteal bypass graft with one vessel runoff via the left anterior tibial artey He is for anticoagulation and pain control and will require arterial intervention of this leg in the near future. Hx of cABG in the pai Past Medical History Past Medical History: Coronary Artery Disease (hx of CABG), Dyslipidemia, GERD and Hypertension Past Surgical History Surgical History: Appendectomy Family History Family Medical History: [place] and Heart Failure Social History Does patient currently use any type of tobacco product: No Type of Tobacco Use: Cigarettes Does any household member use tobacco: No Alcohol Use: Occasionally Drug Use: None Medications Home Medications: Home Medications Medication Instructions Recorded Confirmed Type apixaban 5 mg tablet (Eliquis) 5 mg PO BID 01/26/24 01/26/24 History aspirin 81 mg tablet,delayed 81 mg PO DAILY 01/26/24 08/25/24 History release atorvastatin 80 mg tablet 80 mg PO QDAY 01/26/24 08/25/24 History budesonide 160 mcg-glycopyr 9 2 inh inhalation BID 01/26/24 08/25/24 History mcg-formot 4.8 mcg/actuation HFA inhaler (Breztri Aerosphere) cilostazol 50 mg tablet 50 mg PO BID 01/26/24 08/25/24 History lisinopril 20 mg tablet 20 mg PO QDAY 01/26/24 08/25/24 History metoprolol succinate 50 mg 50 mg PO QDAY 01/26/24 08/25/24 History tablet,extended release 24 hr albuterol sulfate 90 mcg/actuation 2 puff inhalation Q6H PRN 08/25/24 08/25/24 History aerosol inhaler Allergies Allergies Allergy/AdvReac Type Severity Reaction Status Date / Time Iodinated Contrast Media Allergy Verified 01/25/24 22:29 [IVP DYE] Labs Labs: se labs from [place] this Review of Systems Constitutional: See HPI Eyes: No Symptoms Reported ENT: No Symptoms Reported Respiratory: No Symptoms Reported Cardiovascular: No Symptoms Reported Gastrointestinal: No Symptoms Reported Genitourinary: No Symptoms Reported Musculoskeletal: See HPI Skin: No Symptoms Reported Neurological: No Symptoms Reported Physical Exam Vital Signs: Vital Signs Temperature 97.4 F Temperature 97.4 F Temperature 96.3 F Pulse Rate [Left Radial] 89 Respiratory Rate 20 Respiratory Rate 20 Respiratory Rate 20 Blood Pressure [Right Arm] 180/84 O2 Sat by Pulse Oximetry 97 Oriented: Normal, Time, Person and Place Eyes: Normal Ear: Normal Nose: Normal Throat: Normal Respiratory: Clear Throughout Cardiovascular: Normal and Other (papable ankle pulses on the right, absent distal pulse left ankle and left foot is cool to palpation) : Normal Auscultation: Bowel Sounds: Normal Palpation: Normal Tenderness: Normal Skin: Normal Musculoskeletal: Normal Psychiatric: Normal Mood Description: Anxious Affect: Anxious Speech Pattern: Clear and Appropriate Assessment/Plan (1) Atherosclerosis of [place] arteries of extremities with rest pain, left leg: Status: Acute Plan: Begin therapeutic Lovenox , will need let arterial intervention (2) Essential (primary) hypertension: Status: Acute Plan: home meds (3) Hyperlipidemia: Status: Acute Plan: home meds (4) Gastro-esophageal reflux disease without esophagitis: Status: Acute Plan: home meds (5) Chronic ischemic heart disease: Status: Acute Plan: home meds Review H&P Reviewed: Yes Patient was examined?: Yes
[2024-08-26] MEDS: PLETAL PO SCH (00:38)
[2024-08-26] MEDS: LOVENOX INJ 80 MG SYR SC SCH (00:39)
[2024-08-26] MEDS: LR 1,000 ML IV 1,000 ML IV SCH (00:40)
[2024-08-26 07:00] LABS: BASOPHILS # (AUTO) 0.1 X10^3/uL (0.0-0.1); BASOPHILS % (AUTO) 0.4 % (0.2-1.0); HEMOGLOBIN 12.8 g/dL (13.5-18.0); LYMPHOCYTES # (AUTO) 1.4 X10^3/uL (1.3-2.9); LYMPHOCYTES % (AUTO) 9.3 % (21.0-51.0); MEAN CORPUSCULAR HGB CONC 34.7 g/dL (33.0-35.0); MEAN CORPUSCULAR VOLUME 95.2 fL (80.0-100.0); MEAN PLATELET VOLUME 7.3 fL (7.4-11.0); MONOCYTES # (AUTO) 0.9 x10^3/uL (0.3-0.8); MONOCYTES % (AUTO) 5.8 % (0.0-13.0); NEUTROPHILS # (AUTO) 12.9 x10^3/uL (2.2-4.8); NEUTROPHILS % (AUTO) 84.5 % (42.0-75.0); PLATELET COUNT 381 X10^3/uL (150.0-450.0); RED BLOOD COUNT 3.88 X10^6/uL (4.7-6.0); RED CELL DISTRIBUTION WIDTH 13.7 % (11.6-16.5); WHITE BLOOD COUNT 15.2 X10^3/uL (3.6-10.0)
[2024-08-26 07:26] LABS: ALANINE AMINOTRANSFERASE 50 Units/L (12-78); ALBUMIN 3.9 g/dL (3.4-5.0); ALKALINE PHOSPHATASE 56 Units/L (46-116); ASPARTATE AMINO TRANSFERASE 125 Units/L (15-37); BLOOD UREA NITROGEN 9 mg/dL (7-18); CALCIUM 8.8 mg/dL (8.5-10.1); CARBON DIOXIDE 26.1 mmol/L (21-32); CHLORIDE 95 mmol/L (98-107); COR NA(FOR HYPERGLY) 131 mmol/L (136-145); CREATININE 0.85 mg/dL (0.70-1.30); GLUCOSE 114 mg/dL (65-99); MAGNESIUM 1.8 mg/dL (2.0-2.9); POTASSIUM 4.1 mmol/L (3.5-5.1); SODIUM 131 mmol/L (136-145); TOTAL PROTEIN 7.3 g/dL (6.4-8.2); eGFR NON BLACK RACES > 60 (>60)
[2024-08-26] MEDS ORDERED: CONSULT PHARMACY - POTASSIUM & MAGNESIUM XX SCH (08:00)
[2024-08-26] MEDS: TOPROL XL PO SCH (08:15)
[2024-08-26] MEDS: LIPITOR TAB 80 MG PO SCH (08:15)
[2024-08-26] MEDS: MAG-OX TAB PO SCH (08:15)
[2024-08-26] MEDS: ASPIRIN 81 MG CHEWTAB PO SCH (08:15)
[2024-08-26] MEDS: ZESTRIL TAB 20 MG PO SCH (08:15)
[2024-08-26] MEDS: MAALOX or MYLANTA PO PRN (08:20)
[2024-08-26] MEDS: ZESTRIL TAB 20 MG ONE (08:55)
[2024-08-26] MEDS: PERCOCET TAB 5/325 MG PO PRN (11:36)
--- NOTE | 2024-08-26 15:20 | NOTE.SOAP ---
Soap Note Note for Day of Date of Exam: 08/26/24 Subjective Data Subjective Data: Still with rest pain left leg requiring narcotics for pain relief Objective Data Temperature: 98.7 F Pulse Rate: 80 Respiratory Rate: 20 Blood Pressure: 171/86 O2 Sat by Pulse Oximetry: 96 Objective Data: Left foot cool with no distal palpable pulses. Assessment Assessment: Ischemic left leg, thrombosis of left leg femoral popliteal bypass graft. Plan Plan: Pain contol. Therapuetic lovenox. Wlll need peripheral based aterial intervention of the left leg/
[2024-08-26] MEDS: ZOFRAN INJ 4 MG VIAL IVP PRN (17:05)
[2024-08-27 07:27] LABS: ALANINE AMINOTRANSFERASE 65 Units/L (12-78); ALBUMIN 3.2 g/dL (3.4-5.0); ALKALINE PHOSPHATASE 47 Units/L (46-116); ASPARTATE AMINO TRANSFERASE 191 Units/L (15-37); BLOOD UREA NITROGEN 9 mg/dL (7-18); CALCIUM 8.4 mg/dL (8.5-10.1); CARBON DIOXIDE 25.1 mmol/L (21-32); CHLORIDE 97 mmol/L (98-107); CREATININE 0.72 mg/dL (0.70-1.30); GLUCOSE 92 mg/dL (65-99); MAGNESIUM 2.2 mg/dL (2.0-2.9); POTASSIUM 4.3 mmol/L (3.5-5.1); SODIUM 131 mmol/L (136-145); TOTAL PROTEIN 6.2 g/dL (6.4-8.2); eGFR NON BLACK RACES > 60 (>60)
[2024-08-27] MEDS ORDERED: ZESTRIL TAB 20 MG ONE (07:46)
--- NOTE | 2024-08-27 21:03 | NOTE.SOAP ---
Soap Note Note for Day of Date of Exam: 08/27/24 Subjective Data Subjective Data: Continues with rest pain of the left leg requiring narcotic for pain. Currently on therapeutic Lovenox . Objective Data Temperature: 97.8 F Pulse Rate: 83 Respiratory Rate: 18 Blood Pressure: 149/81 O2 Sat by Pulse Oximetry: 100 Objective Data: Cool left foot , absent pulses of the left ankle Assessment Assessment: Ischemic left leg with thrombosis of left femoral popiteal bypass. Plan Plan: NPO after midnight, arteriogram left leg , arterial intervention, possible directed thrombolysis of the left leg arteries
[2024-08-28] MEDS: HIBICLENS WASH EXT ONE (05:23)
[2024-08-28] MEDS: NOZIN NASAL SANITIZER TP ONE (05:23)
[2024-08-28] MEDS ORDERED: ZESTRIL TAB 20 MG ONE ×2 (07:46→14:09)
[2024-08-28] MEDS: FENTANYL VIAL INJ 100 mcg ONE (08:40)
[2024-08-28] MEDS: VERSED ONE (08:40)
[2024-08-28] MEDS: PEPCID 20 MG VIAL ONE (08:41)
[2024-08-28] MEDS: REGLAN INJ 10 MG VIAL ONE (08:41)
[2024-08-28] MEDS: LR 1,000 ML IV 1,000 ML IV ONE (08:41)
[2024-08-28] MEDS: DIPRIVAN VIAL 20 ML ONE (08:41)
[2024-08-28] MEDS: ZOFRAN INJ 4 MG VIAL ONE (08:41)
[2024-08-28] MEDS: HEPARIN SODIUM INJ 5000 UNITS ONE (08:41)
[2024-08-28] MEDS: LR 1,000 ML IV 800 ML IV PRN (09:00)
[2024-08-28] MEDS: PEPCID 20 MG VIAL IVP PRN (09:05)
[2024-08-28] MEDS: ZOFRAN INJ 4 MG VIAL IVP PRN (09:05)
[2024-08-28] MEDS: REGLAN INJ 10 MG VIAL IVP PRN (09:05)
[2024-08-28] MEDS: ANCEF VIAL 1 GRAM IV PRN (09:20)
[2024-08-28] MEDS: ANCEF VIAL 1 GRAM ONE (09:23)
[2024-08-28] MEDS: NS 100 ML IV 100 ML ONE (09:23)
[2024-08-28] MEDS: VERSED IVP PRN (09:25)
[2024-08-28] MEDS: DECADRON INJ ONE (09:26)
[2024-08-28] MEDS: BENADRYL INJ 50 MG VIAL ONE (09:26)
[2024-08-28] MEDS: BENADRYL INJ 50 MG VIAL IVP PRN (09:28)
[2024-08-28] MEDS: DECADRON INJ IVP PRN (09:28)
[2024-08-28] MEDS ORDERED: KETAMINE HCL ONE (09:29)
[2024-08-28] MEDS ORDERED: PRECEDEX INJ VIAL ONE (09:29)
[2024-08-28] MEDS: DIPRIVAN VIAL 150 ML IVP PRN (09:37)
[2024-08-28] MEDS: KETAMINE HCL IV PRN (09:38)
[2024-08-28] MEDS: PRECEDEX INJ VIAL IVP PRN (09:38)
[2024-08-28] MEDS: HEPARIN 1,000 UNIT/500 ML-NS 1,000 UNIT/500 ML IV.SOLN ONE (09:53)
[2024-08-28] MEDS: VISIPAQUE 50 ML ONE (09:53)
[2024-08-28] MEDS: VISIPAQUE 100 ML ONE (09:53)
[2024-08-28] MEDS: HEPARIN SODIUM INJ 5000 UNITS IVP PRN (09:58)
[2024-08-28] MEDS: NORMODYNE INJ 20 MG VIAL IVP PRN (10:00)
[2024-08-28] MEDS: NS 1,000 ML IV 1,000 ML ONE ×2 (10:22→11:06)
[2024-08-28] MEDS: FENTANYL VIAL INJ 100 mcg IVP PRN (10:28)
[2024-08-28] MEDS: ACTIVASE CATHFLO 12 MG in NS 250 ML IV 228 ML IV SCH (10:45)
[2024-08-28] MEDS: ACTIVASE CATHFLO ONE (10:45)
[2024-08-28] MEDS: NORMODYNE INJ 20 MG VIAL ONE (11:07)
[2024-08-28] MEDS: MARCAINE 0.5% ONE (11:07)
--- NOTE | 2024-08-28 14:33 | OR.IMMED ---
IMMEDIATE POST-OP NOTE Immediate Post-Op Note Date of surgery/procedure: 08/28/24 Pre-Op Diagnosis: Critical ischemia left leg, thrombosis of left femoral popliteal bypass graft Post-Op Diagnosis: same , see findings Procedure: aortogram, arteriogram left leg, placement of EKOS thrombolytic catheter all the way to the ankle ,willproceed with 24 hours of TPA in directed fashion. In 24 hours will pull the catheter back approximately 18 inches and repeat TPA for another 12 hours to get the proximal part of the gortex graft which is also thrombosed Surgeon/Excavating Contractor: Naty Findings: normal aorta and iliac artery flow with bilateral common iliac artery stents in place , completely occluded left femoral Popliteal bypass graft all the way from its takeoff in the groin with only run off identified was the distal anterior artery . All of the vessels of left leg runoff with thrombosis . Patient has had pain but no mottling of the foot until I noted it post procedure. This is worrisome . Estimated Blood Loss: 50 cc Complications: none Progress Notes: taken to the ICU for continued directed thrombolysis
[2024-08-28] MEDS ORDERED: ACTIVASE CATHFLO 12 MG in NS 250 ML IV 228 ML INTRACATH ONE (14:34)
[2024-08-28] MEDS ORDERED: PHARMACY CONSULT EKOS LOVENOX XX SCH (15:00)
[2024-08-28 15:07] LABS: BASOPHILS % (AUTO) 0.3 % (0.2-1.0); HEMATOCRIT 35.4 % (42.0-54.0); HEMOGLOBIN 12.2 g/dL (13.5-18.0); LYMPHOCYTES # (AUTO) 0.3 X10^3/uL (1.3-2.9); MEAN CORPUSCULAR HEMOGLOBIN 32.9 pg (27.0-34.0); MEAN CORPUSCULAR HGB CONC 34.5 g/dL (33.0-35.0); MEAN CORPUSCULAR VOLUME 95.4 fL (80.0-100.0); MEAN PLATELET VOLUME 6.7 fL (7.4-11.0); MONOCYTES # (AUTO) 0.2 x10^3/uL (0.3-0.8); MONOCYTES % (AUTO) 1.8 % (0.0-13.0); NEUTROPHILS # (AUTO) 13.2 x10^3/uL (2.2-4.8); NEUTROPHILS % (AUTO) 95.9 % (42.0-75.0); PLATELET COUNT 304 X10^3/uL (150.0-450.0); RED BLOOD COUNT 3.71 X10^6/uL (4.7-6.0); RED CELL DISTRIBUTION WIDTH 13.7 % (11.6-16.5); WHITE BLOOD COUNT 13.8 X10^3/uL (3.6-10.0)
[2024-08-28] MEDS: NS 500 ML IV 500 ML IV SCH (15:07)
[2024-08-28] MEDS: APRESOLINE INJ 20 MG VIAL IVP ONE (15:10)
[2024-08-28] MEDS: LOVENOX INJ 60 MG SYR SC SCH (15:15)
[2024-08-28] MEDS: DILAUDID INJ IVP PRN (15:15)
[2024-08-28 15:34] LABS: PLATELET MORPHOLOGY COMMENT NORMAL (NORMAL)
[2024-08-28] MEDS: NORMODYNE INJ 20 MG VIAL IVP ONE (15:45)
[2024-08-28] MEDS ORDERED: PHENOBARBITAL SODIUM INJ 65 MG VIAL IM PRN (16:18)
[2024-08-28] MEDS: LIBRIUM PO PRN (16:34)
[2024-08-28] MEDS: PHENOBARBITAL TAB 30 MG (32.4MG) PO SCH (16:35)
[2024-08-28] MEDS: THIAMINE HCL INJ IM SCH (16:35)
[2024-08-28] MEDS: COLACE CAP 100 MG PO SCH (20:06)
[2024-08-28] MEDS: AMBIEN PO SCH (20:06)
[2024-08-28] MEDS: MILK OF MAGNESIA PO SCH (20:10)
[2024-08-28 20:57] LABS: BASOPHILS % (AUTO) 0.1 % (0.2-1.0); HEMATOCRIT 35.5 % (42.0-54.0); HEMOGLOBIN 12.2 g/dL (13.5-18.0); LYMPHOCYTES # (AUTO) 0.5 X10^3/uL (1.3-2.9); LYMPHOCYTES % (AUTO) 3.8 % (21.0-51.0); MEAN CORPUSCULAR HGB CONC 34.4 g/dL (33.0-35.0); MEAN CORPUSCULAR VOLUME 95.9 fL (80.0-100.0); MEAN PLATELET VOLUME 6.9 fL (7.4-11.0); MONOCYTES # (AUTO) 0.6 x10^3/uL (0.3-0.8); MONOCYTES % (AUTO) 4.6 % (0.0-13.0); NEUTROPHILS # (AUTO) 12.3 x10^3/uL (2.2-4.8); NEUTROPHILS % (AUTO) 91.5 % (42.0-75.0); PLATELET COUNT 329 X10^3/uL (150.0-450.0); RED CELL DISTRIBUTION WIDTH 13.8 % (11.6-16.5); WHITE BLOOD COUNT 13.5 X10^3/uL (3.6-10.0)
[2024-08-28 21:16] LABS: PLATELET MORPHOLOGY COMMENT NORMAL (NORMAL)
[2024-08-29 03:05] LABS: BASOPHILS # (AUTO) 0.1 X10^3/uL (0.0-0.1); BASOPHILS % (AUTO) 0.3 % (0.2-1.0); HEMOGLOBIN 11.3 g/dL (13.5-18.0); LYMPHOCYTES % (AUTO) 6.3 % (21.0-51.0); MEAN CORPUSCULAR HEMOGLOBIN 32.8 pg (27.0-34.0); MEAN CORPUSCULAR HGB CONC 34.3 g/dL (33.0-35.0); MEAN CORPUSCULAR VOLUME 95.6 fL (80.0-100.0); MONOCYTES # (AUTO) 2.1 x10^3/uL (0.3-0.8); MONOCYTES % (AUTO) 12.9 % (0.0-13.0); NEUTROPHILS # (AUTO) 13.2 x10^3/uL (2.2-4.8); NEUTROPHILS % (AUTO) 80.5 % (42.0-75.0); PLATELET COUNT 317 X10^3/uL (150.0-450.0); RED BLOOD COUNT 3.45 X10^6/uL (4.7-6.0); RED CELL DISTRIBUTION WIDTH 14.1 % (11.6-16.5); WHITE BLOOD COUNT 16.4 X10^3/uL (3.6-10.0)
[2024-08-29 03:15] LABS: ALANINE AMINOTRANSFERASE 103 Units/L (12-78); ALBUMIN 3.2 g/dL (3.4-5.0); ALKALINE PHOSPHATASE 54 Units/L (46-116); ASPARTATE AMINO TRANSFERASE 304 Units/L (15-37); BLOOD UREA NITROGEN 13 mg/dL (7-18); CARBON DIOXIDE 28.3 mmol/L (21-32); CHLORIDE 97 mmol/L (98-107); COR CA(FOR HYPOALB) 8.6 mg/dL (8.5-10.1); CREATININE 0.86 mg/dL (0.70-1.30); GLUCOSE 102 mg/dL (65-99); POTASSIUM 4.1 mmol/L (3.5-5.1); SODIUM 132 mmol/L (136-145); TOTAL PROTEIN 6.2 g/dL (6.4-8.2); eGFR NON BLACK RACES > 60 (>60)
[2024-08-29] MEDS ORDERED: ZESTRIL TAB 20 MG ONE (08:38)
[2024-08-29] MEDS: LOVENOX INJ 60 MG SYR SC SCH (08:51)
[2024-08-29 09:00] LABS: BASOPHILS # (AUTO) 0.1 X10^3/uL (0.0-0.1); BASOPHILS % (AUTO) 0.4 % (0.2-1.0); EOSINOPHILS % (AUTO) 0.2 % (0.9-2.9); HEMATOCRIT 32.6 % (42.0-54.0); HEMOGLOBIN 11.4 g/dL (13.5-18.0); LYMPHOCYTES # (AUTO) 1.5 X10^3/uL (1.3-2.9); LYMPHOCYTES % (AUTO) 9.7 % (21.0-51.0); MEAN CORPUSCULAR HEMOGLOBIN 33.2 pg (27.0-34.0); MEAN CORPUSCULAR HGB CONC 34.9 g/dL (33.0-35.0); MEAN CORPUSCULAR VOLUME 95.2 fL (80.0-100.0); MEAN PLATELET VOLUME 6.8 fL (7.4-11.0); MONOCYTES % (AUTO) 6.3 % (0.0-13.0); NEUTROPHILS # (AUTO) 12.8 x10^3/uL (2.2-4.8); NEUTROPHILS % (AUTO) 83.4 % (42.0-75.0); PLATELET COUNT 301 X10^3/uL (150.0-450.0); RED BLOOD COUNT 3.42 X10^6/uL (4.7-6.0); RED CELL DISTRIBUTION WIDTH 13.7 % (11.6-16.5); WHITE BLOOD COUNT 15.4 X10^3/uL (3.6-10.0)
[2024-08-29 14:55] LABS: BASOPHILS # (AUTO) 0.1 X10^3/uL (0.0-0.1); BASOPHILS % (AUTO) 0.5 % (0.2-1.0); EOSINOPHILS % (AUTO) 0.1 % (0.9-2.9); HEMATOCRIT 30.3 % (42.0-54.0); HEMOGLOBIN 10.5 g/dL (13.5-18.0); LYMPHOCYTES # (AUTO) 2.1 X10^3/uL (1.3-2.9); LYMPHOCYTES % (AUTO) 16.2 % (21.0-51.0); MEAN CORPUSCULAR HEMOGLOBIN 33.3 pg (27.0-34.0); MEAN CORPUSCULAR HGB CONC 34.8 g/dL (33.0-35.0); MEAN CORPUSCULAR VOLUME 95.7 fL (80.0-100.0); MEAN PLATELET VOLUME 6.9 fL (7.4-11.0); MONOCYTES # (AUTO) 0.8 x10^3/uL (0.3-0.8); MONOCYTES % (AUTO) 6.3 % (0.0-13.0); NEUTROPHILS # (AUTO) 9.9 x10^3/uL (2.2-4.8); NEUTROPHILS % (AUTO) 76.9 % (42.0-75.0); PLATELET COUNT 284 X10^3/uL (150.0-450.0); RED BLOOD COUNT 3.17 X10^6/uL (4.7-6.0); RED CELL DISTRIBUTION WIDTH 13.5 % (11.6-16.5)
--- NOTE | 2024-08-29 20:27 | NOTE.SOAP ---
Soap Note Note for Day of Date of Exam: 08/29/24 Subjective Data Subjective Data: Pain left foot relieved since TPA has been running to the left foot. Left foot now warmer with improved color Objective Data Temperature: 98.3 F Pulse Rate: 85 Respiratory Rate: 18 Blood Pressure: 129/68 O2 Sat by Pulse Oximetry: 100 Objective Data: Left foot as above , Hgb=10.5, Cr=0.86, WBC=13.0 Assessment Assessment: revascualrization of left foot with TPA directed thrombolysis Plan Plan: return to OR tomolrrow for arteriogram and possible additional aterial intervention of the left leg.
--- NOTE | 2024-08-29 21:03 | DR.OPNOTE ---
OP NOTE Pre-Op Diagnosis: thrombosis arteries (bypass) left leg with critical ischemia Post-Op Diagnosis: same, see findings Procedure Date Date Of Procedure: 08/28/24 Procedure: PROCEDURE: DIAGNOSTIC AORTOGRAM, DIAGNOSTIC ARTERIOGRAM LEFT LEG, SELECTIVE CATHERIZATION LEFT ANTERIOR TIBIAL ARTERY , PLACEMENT OF EKOS THROMBOLYTIC CATHETER WITH MONITOING OF FIRST DAY OF DIRECTED THROMBOLYSIS WITH TPA. NARRATIVE : The patient was taken to the operative suite and placed in the supine position. The right groin and entire left leg were prepped and draped in sterile fashion. The patient was given intravenous sedation supervised by myself. Time out for the procedure obtained. Ultrasound used to identify the right femoral artery and the skin overlying it infiltrated with 0.5% Marcaine. Ultrasound then used to guide puncture of the right femoral artery and a 0.012 inch guide wire was placed. Incision made over the guide wire at the skin edge with a # 11 knife blade and a micro sheath placed over the guide wire into the right femoral artery The small guidewire exchanged for a 0.035 inch Advantage glide wire and the micro sheath exchanged for a 5 Fr vascular sheath. Patient given 5000 units of intravenous heparin. Omni catheter was placed over the guide wire into the aorta and diagnostic aortogram carried out with the power injector showing patetn aorta and patent iliac arteries with bilateral common iliac artery stents . Omni catheter was used to steer the guide wire down the left common iliac artery to the distal left external iliac artery . Omni catheter was exchanged for a [place] catheter and sequential arteriograms mary ed out of the left lower extremity showing complete occusion/ thrombosis of the left [place] superficial femoral artery and left femoral popliteal bypass with no opacification of the popliteal or tibial peroneal tunk arteries . All runoff vessels not opacified with exception of the distal left anterior tibial artery at the ankle .The 5 Fr sheath in the right groin then exchanged for a 7 Fr Catapult destination sheath which was parked in the distal left external iliac artery . [place] catheter and the guide wire were used to traverse the bypass graft of the left leg ultimately ending in the left anterior tibial artery all the way to the foot . This was selective catheterization. Over the 0.035 inch wire we placed the EKOPS catheter, removed the wire and placed the inner core of the EKOS catheter along it's entire lenght. Bolus of 3 mg TPA given throught the drug port and this connected to TPA drip of 1 mg / hour. Coolant port connected to normal saline at 30 cc/ hour. Patient will be given therpuetic Lovenox instead of heparin drip throught the sheath. Device connected to the oscillating EKOS generator . Dressings applied . Sheath securewdith a 2-0 silk suture ligature and the patient taken to CCU for continuous directed TPA infusion. This is for the ist day of infusion. Type of Anesthesia: Local (0.5% Marcaine ) Anesthesia Comment: plus MAC Findings: patietn aorta and iliac artery stents complete thrombosis of the left Gortex femoral popliteal bypass with thrombosis of all runoff arteies left foot. Type of Fluids Used:: Lactated Ringers Total Amount of Fluid Infused:: 800 cc Urine output: 250 cc EBL: 50 cc Complications:: none Needle/Sponge Count:: correct Disposition/Condition: Pt. tolerated procedure without difficulty. Taken to the CCU in stable condition.
[2024-08-29 21:09] LABS: BASOPHILS # (AUTO) 0.1 X10^3/uL (0.0-0.1); BASOPHILS % (AUTO) 0.7 % (0.2-1.0); EOSINOPHILS % (AUTO) 0.2 % (0.9-2.9); HEMATOCRIT 31.6 % (42.0-54.0); HEMOGLOBIN 10.9 g/dL (13.5-18.0); LYMPHOCYTES # (AUTO) 2.7 X10^3/uL (1.3-2.9); MEAN CORPUSCULAR HEMOGLOBIN 33.1 pg (27.0-34.0); MEAN CORPUSCULAR HGB CONC 34.7 g/dL (33.0-35.0); MEAN CORPUSCULAR VOLUME 95.5 fL (80.0-100.0); MEAN PLATELET VOLUME 6.7 fL (7.4-11.0); MONOCYTES # (AUTO) 1.9 x10^3/uL (0.3-0.8); MONOCYTES % (AUTO) 13.8 % (0.0-13.0); NEUTROPHILS # (AUTO) 8.8 x10^3/uL (2.2-4.8); NEUTROPHILS % (AUTO) 65.3 % (42.0-75.0); PLATELET COUNT 291 X10^3/uL (150.0-450.0); RED CELL DISTRIBUTION WIDTH 13.8 % (11.6-16.5); WHITE BLOOD COUNT 13.4 X10^3/uL (3.6-10.0)
[2024-08-30 02:59] LABS: BASOPHILS # (AUTO) 0.1 X10^3/uL (0.0-0.1); BASOPHILS % (AUTO) 0.8 % (0.2-1.0); EOSINOPHILS # (AUTO) 0.1 x10^3/uL (0.0-0.2); EOSINOPHILS % (AUTO) 0.8 % (0.9-2.9); HEMATOCRIT 30.2 % (42.0-54.0); HEMOGLOBIN 10.5 g/dL (13.5-18.0); LYMPHOCYTES # (AUTO) 2.6 X10^3/uL (1.3-2.9); LYMPHOCYTES % (AUTO) 21.7 % (21.0-51.0); MEAN CORPUSCULAR HEMOGLOBIN 33.1 pg (27.0-34.0); MEAN CORPUSCULAR HGB CONC 34.7 g/dL (33.0-35.0); MEAN CORPUSCULAR VOLUME 95.2 fL (80.0-100.0); MEAN PLATELET VOLUME 6.7 fL (7.4-11.0); MONOCYTES # (AUTO) 1.3 x10^3/uL (0.3-0.8); MONOCYTES % (AUTO) 10.9 % (0.0-13.0); NEUTROPHILS % (AUTO) 65.8 % (42.0-75.0); PLATELET COUNT 272 X10^3/uL (150.0-450.0); RED BLOOD COUNT 3.17 X10^6/uL (4.7-6.0); RED CELL DISTRIBUTION WIDTH 13.9 % (11.6-16.5); WHITE BLOOD COUNT 12.1 X10^3/uL (3.6-10.0)
[2024-08-30] MEDS: NOZIN NASAL SANITIZER TP ONE (04:28)
[2024-08-30] MEDS: HIBICLENS WASH EXT ONE (04:28)
[2024-08-30] MEDS ORDERED: ZESTRIL TAB 20 MG ONE (08:18)
[2024-08-30 08:32] LABS: BASOPHILS # (AUTO) 0.1 X10^3/uL (0.0-0.1); BASOPHILS % (AUTO) 0.7 % (0.2-1.0); EOSINOPHILS # (AUTO) 0.1 x10^3/uL (0.0-0.2); EOSINOPHILS % (AUTO) 0.7 % (0.9-2.9); HEMATOCRIT 31.4 % (42.0-54.0); HEMOGLOBIN 10.9 g/dL (13.5-18.0); LYMPHOCYTES % (AUTO) 14.2 % (21.0-51.0); MEAN CORPUSCULAR HEMOGLOBIN 33.1 pg (27.0-34.0); MEAN CORPUSCULAR HGB CONC 34.8 g/dL (33.0-35.0); MEAN PLATELET VOLUME 6.9 fL (7.4-11.0); MONOCYTES # (AUTO) 1.5 x10^3/uL (0.3-0.8); MONOCYTES % (AUTO) 10.4 % (0.0-13.0); NEUTROPHILS # (AUTO) 10.6 x10^3/uL (2.2-4.8); PLATELET COUNT 246 X10^3/uL (150.0-450.0); RED CELL DISTRIBUTION WIDTH 13.7 % (11.6-16.5); WHITE BLOOD COUNT 14.4 X10^3/uL (3.6-10.0)
[2024-08-30] MEDS: VERSED ONE (11:51)
[2024-08-30] MEDS: FENTANYL VIAL INJ 100 mcg ONE (11:51)
[2024-08-30] MEDS: ZOFRAN INJ 4 MG VIAL ONE (11:52)
[2024-08-30] MEDS: PEPCID 20 MG VIAL ONE (11:52)
[2024-08-30] MEDS: REGLAN INJ 10 MG VIAL ONE (11:52)
[2024-08-30] MEDS: LR 1,000 ML IV 1,000 ML IV ONE (12:16)
[2024-08-30] MEDS: DECADRON INJ ONE (12:25)
[2024-08-30] MEDS: BENADRYL INJ 50 MG VIAL ONE (12:26)
[2024-08-30] MEDS: DIPRIVAN VIAL 20 ML ONE (12:29)
[2024-08-30] MEDS: BENADRYL INJ 50 MG VIAL IVP PRN (12:39)
[2024-08-30] MEDS: REGLAN INJ 10 MG VIAL IVP PRN (12:39)
[2024-08-30] MEDS: PEPCID 20 MG VIAL IVP PRN (12:39)
[2024-08-30] MEDS: DECADRON INJ IVP PRN (12:39)
[2024-08-30] MEDS: ZOFRAN INJ 4 MG VIAL IVP PRN (12:40)
[2024-08-30] MEDS: ANCEF VIAL 1 GRAM IV PRN (12:58)
[2024-08-30] MEDS ORDERED: KETAMINE HCL ONE (12:59)
[2024-08-30] MEDS ORDERED: PRECEDEX INJ VIAL ONE (12:59)
[2024-08-30] MEDS: NS 100 ML IV 100 ML ONE (12:59)
[2024-08-30] MEDS: HEPARIN 1,000 UNIT/500 ML-NS 1,000 UNIT/500 ML IV.SOLN ONE (12:59)
[2024-08-30] MEDS: MARCAINE 0.5% ONE (12:59)
[2024-08-30] MEDS: LR 1,000 ML IV 500 ML IV PRN (12:59)
[2024-08-30] MEDS: ANCEF VIAL 1 GRAM ONE (12:59)
[2024-08-30] MEDS: DIPRIVAN VIAL 100 ML IVP PRN (13:05)
[2024-08-30] MEDS: PRECEDEX INJ VIAL IVP PRN (13:06)
[2024-08-30] MEDS: KETAMINE HCL IV PRN (13:06)
[2024-08-30] MEDS: HEPARIN SODIUM INJ 5000 UNITS ONE ×2 (13:23→19:01)
[2024-08-30] MEDS: VISIPAQUE 100 ML ONE (13:24)
[2024-08-30] MEDS: VISIPAQUE 50 ML ONE ×2 (13:24→14:06)
[2024-08-30] MEDS: FENTANYL VIAL INJ 100 mcg IVP PRN (13:55)
[2024-08-30] MEDS: VERSED IVP PRN (13:55)
[2024-08-30] MEDS: NITROGLYCERIN IV PREMIX 50 MG 50 MG/250 ML BAG ONE (14:19)
[2024-08-30] MEDS: HEPARIN SODIUM INJ 5000 UNITS IVP PRN (14:24)
[2024-08-30] MEDS: NEO-SYNEPHRINE INJ IVP PRN (14:30)
[2024-08-30] MEDS: PROTAMINE SULFATE 50 MG VIAL IVP PRN (14:41)
--- NOTE | 2024-08-30 15:17 | OR.IMMED ---
IMMEDIATE POST-OP NOTE Immediate Post-Op Note Date of surgery/procedure: 08/30/24 Pre-Op Diagnosis: Left leg arteriogram , Smart Claw thrombectomy of upper part left gortex femoral popliteal bypass graft , angioplasty left peroneal artery, angioplasty left anterior tibial artery and angioplasty left dorsalois pedis , drug coated balloon angioplasty proximal part of the ledft leg graft ultimately requiring stenting of the proximal Gortex left femoral bypass graft using a 7mm by 15 mm Sudha stent . Post-Op Diagnosis: same Procedure: see pre-op diagnosis above Surgeon/Teachers Assistant: Naty Findings: thrombolysis successfully opened up the left leg fempral poplitealk bypass graft now with 2 vessel runoff via the peroneal artery and anterior tibial arteries to the ankle ,still with residual thrombus in the proximal portion of the left Gortex femoral popliteal bypass graft . Estimated Blood Loss: 100 cc Complications: none Progress Notes: return to CCU
[2024-08-30] MEDS: NEO-SYNEPHRINE INJ ONE (19:04)
[2024-08-30] MEDS: PROTAMINE SULFATE 50 MG VIAL ONE (19:06)
[2024-08-30 23:50] VITALS: O2SAT 100
[2024-08-31 05:11] LABS: BASOPHILS % (AUTO) 0.2 % (0.2-1.0); HEMATOCRIT 25.2 % (42.0-54.0); HEMOGLOBIN 8.9 g/dL (13.5-18.0); LYMPHOCYTES # (AUTO) 0.8 X10^3/uL (1.3-2.9); LYMPHOCYTES % (AUTO) 6.8 % (21.0-51.0); MEAN CORPUSCULAR HEMOGLOBIN 33.4 pg (27.0-34.0); MEAN CORPUSCULAR HGB CONC 35.3 g/dL (33.0-35.0); MEAN CORPUSCULAR VOLUME 94.6 fL (80.0-100.0); MEAN PLATELET VOLUME 7.3 fL (7.4-11.0); MONOCYTES # (AUTO) 0.5 x10^3/uL (0.3-0.8); MONOCYTES % (AUTO) 4.1 % (0.0-13.0); NEUTROPHILS # (AUTO) 10.1 x10^3/uL (2.2-4.8); NEUTROPHILS % (AUTO) 88.9 % (42.0-75.0); PLATELET COUNT 333 X10^3/uL (150.0-450.0); RED BLOOD COUNT 2.67 X10^6/uL (4.7-6.0); RED CELL DISTRIBUTION WIDTH 13.6 % (11.6-16.5); WHITE BLOOD COUNT 11.3 X10^3/uL (3.6-10.0)
[2024-08-31 05:27] LABS: ALANINE AMINOTRANSFERASE 144 Units/L (12-78); ALBUMIN 2.4 g/dL (3.4-5.0); ALKALINE PHOSPHATASE 39 Units/L (46-116); ASPARTATE AMINO TRANSFERASE 296 Units/L (15-37); BLOOD UREA NITROGEN 14 mg/dL (7-18); CARBON DIOXIDE 27.3 mmol/L (21-32); CHLORIDE 96 mmol/L (98-107); COR CA(FOR HYPOALB) 9.3 mg/dL (8.5-10.1); COR NA(FOR HYPERGLY) 136 mmol/L (136-145); CREATININE 1.05 mg/dL (0.70-1.30); GLUCOSE 262 mg/dL (65-99); POTASSIUM 4.3 mmol/L (3.5-5.1); SODIUM 132 mmol/L (136-145); TOTAL PROTEIN 5.3 g/dL (6.4-8.2); eGFR NON BLACK RACES > 60 (>60)
[2024-08-31] MEDS: XARELTO PO SCH (10:23)
[2024-08-31] MEDS: ZESTRIL TAB 20 MG ONE (10:26)
--- NOTE | 2024-08-31 14:13 | W.DIS.FURT ---
Summary of Discharge Discharge Summary of Date Date of Exam: 08/31/24 Admission Date Date of Admission: 08/25/24 Admission Diagnosis Hospital Course: This is a 68 year old male who has had bilateral lower extremity arterial interventions in the past. In January of 2024 he had intervention of a left femoral popliteal bypass graft with stenting of the distal aspect of the graft as well as atherectomy and stenting of the [place] left popliteal artery. He has been on aspirin and blood thinner and presented to the hospital in [place], [place] complaining of severe rest pain of the left leg and foot and CTA showed complete thrombosis and the left femoral popliteal bypass as well as the [place] arteries of the left leg. He was admitted and placed on therapeutic Lovenox and monitored. Pain controlled with Percocet and IV dilaudid . He was taken initially to the operating Suite on August 28 where he underwent arteriogram showing complete occlusion and thrombosis of the left femoral popliteal bypass graft with complete occlusion of all runoff. EKOS thrombolytic catheter placed all the way down the left anterior tibial artery and he underwent 36 hours of directed thrombolysis with relief of rest pain. He was taken back to the OR on August 30 where repeat arteriogram showed the femoral popliteal bypass graft to be patent as well as patetn peroneal and anterior tibial tibial arteries with some disease at the takeoff of both of these. He underwent Smart Claw removal of residual thrombosis of the proximal femoral popliteal bypass graft as well as stenting of the graft proximally and angioplasty of the peroneal and anterior tibial arteries into the tibial peroneal trunk. Balloon anngioplasty of the left anterior tibial artery taken all the way into the dordalis pedis artery of the left foot . Flow is present but not robust. Postoperatively he has had no rest pain but does have evidence of foot drop of the left foot. Physical therapy is seeing him and he will be discharged on a walker with Home Health for outpatient Physical Therapy. He will f/u with me in 1 week. He will continue his usual medications to include daily aspirin ,pletal and Xarelto 2.5 milligrams BID. Vital Signs: Vital Signs (72 hours) 08/29/24 20:26 08/28/24 14:08 08/28/24 14:00 Temperature 98.3 F Pulse Rate 85 Respiratory Rate 18 27 H Blood Pressure 129/68 209/105 O2 Sat by Pulse Oximetry 100 Oxygen Delivery Method Oxygen Flow Rate 08/28/24 14:00 08/28/24 14:03 08/28/24 14:03 Temperature Pulse Rate 117 H 116 H Respiratory Rate 24 21 Blood Pressure 203/93 O2 Sat by Pulse Oximetry 100 100 Oxygen Delivery Method Oxygen Flow Rate 08/28/24 14:07 08/28/24 14:07 08/28/24 14:13 Temperature Pulse Rate 117 H 111 H Respiratory Rate 23 19 Blood Pressure 199/102 O2 Sat by Pulse Oximetry 100 99 Oxygen Delivery Method Oxygen Flow Rate 08/28/24 14:13 08/28/24 14:15 08/28/24 14:38 Temperature Pulse Rate 111 H Respiratory Rate 23 16 Blood Pressure 194/99 O2 Sat by Pulse Oximetry 98 Oxygen Delivery Method Oxygen Flow Rate 08/28/24 14:30 08/28/24 14:45 08/28/24 14:57 Temperature Pulse Rate 111 H 117 H 114 H Respiratory Rate 20 24 26 H Blood Pressure O2 Sat by Pulse Oximetry 91 L 98 94 L Oxygen Delivery Method Oxygen Flow Rate 08/28/24 15:00 08/28/24 15:00 08/28/24 16:11 Temperature Pulse Rate 114 H Respiratory Rate 27 H 34 H Blood Pressure 205/111 O2 Sat by Pulse Oximetry 96 Oxygen Delivery Method Oxygen Flow Rate 08/28/24 15:15 08/28/24 15:15 08/28/24 15:21 Temperature Pulse Rate 115 H Respiratory Rate 31 H Blood Pressure 191/104 177/95 O2 Sat by Pulse Oximetry 96 Oxygen Delivery Method Oxygen Flow Rate 08/28/24 15:21 08/28/24 15:30 08/28/24 15:38 Temperature Pulse Rate 120 H 127 H Respiratory Rate 33 H 32 H Blood Pressure 148/76 O2 Sat by Pulse Oximetry 97 96 Oxygen Delivery Method Oxygen Flow Rate 08/28/24 15:38 08/28/24 15:45 08/28/24 16:00 Temperature Pulse Rate 127 H 128 H 120 H Respiratory Rate 34 H 26 H 36 H Blood Pressure O2 Sat by Pulse Oximetry 98 96 100 Oxygen Delivery Method Oxygen Flow Rate 08/28/24 16:01 08/28/24 16:01 08/28/24 15:15 Temperature Pulse Rate 119 H Respiratory Rate 37 H 27 H Blood Pressure 128/62 O2 Sat by Pulse Oximetry Oxygen Delivery Method Oxygen Flow Rate 08/28/24 15:45 08/28/24 16:15 08/28/24 16:30 Temperature Pulse Rate 122 H 114 H Respiratory Rate 27 H 39 H 20 Blood Pressure O2 Sat by Pulse Oximetry 100 99 Oxygen Delivery Method Oxygen Flow Rate 08/28/24 16:45 08/28/24 17:00 08/28/24 17:00 Temperature Pulse Rate 116 H 115 H Respiratory Rate 23 15 Blood Pressure 121/59 O2 Sat by Pulse Oximetry 99 99 Oxygen Delivery Method Oxygen Flow Rate 08/28/24 17:15 08/28/24 17:30 08/28/24 17:45 Temperature Pulse Rate 117 H 110 H 107 H Respiratory Rate 21 16 23 Blood Pressure O2 Sat by Pulse Oximetry 99 100 99 Oxygen Delivery Method Oxygen Flow Rate 08/28/24 18:00 08/28/24 18:00 08/28/24 18:00 Temperature Pulse Rate 120 H Respiratory Rate 27 H Blood Pressure 120/89 120/89 O2 Sat by Pulse Oximetry 100 Oxygen Delivery Method Oxygen Flow Rate 08/28/24 18:00 08/28/24 18:15 08/28/24 18:30 Temperature Pulse Rate 120 H 117 H 120 H Respiratory Rate 27 H 23 22 Blood Pressure O2 Sat by Pulse Oximetry 100 100 100 Oxygen Delivery Method Oxygen Flow Rate 08/28/24 19:00 08/28/24 18:45 08/28/24 19:02 Temperature Pulse Rate 127 H 122 H Respiratory Rate 29 H 37 H Blood Pressure O2 Sat by Pulse Oximetry 100 100 Oxygen Delivery Method Room Air Oxygen Flow Rate 08/28/24 19:04 08/28/24 19:04 08/28/24 20:07 Temperature Pulse Rate 118 H Respiratory Rate 21 18 Blood Pressure 97/61 O2 Sat by Pulse Oximetry 100 Oxygen Delivery Method Oxygen Flow Rate 08/28/24 19:15 08/28/24 19:30 08/28/24 19:45 Temperature Pulse Rate 116 H 124 H 104 H Respiratory Rate 21 38 H 19 Blood Pressure O2 Sat by Pulse Oximetry 100 99 100 Oxygen Delivery Method Oxygen Flow Rate 08/28/24 20:00 08/28/24 20:00 08/28/24 20:00 Temperature Pulse Rate 119 H Respiratory Rate 33 H Blood Pressure 103/56 103/56 O2 Sat by Pulse Oximetry 100 Oxygen Delivery Method Oxygen Flow Rate 08/28/24 20:15 08/28/24 20:30 08/28/24 20:45 Temperature Pulse Rate 119 H 121 H 110 H Respiratory Rate 35 H 29 H 23 Blood Pressure O2 Sat by Pulse Oximetry 98 100 98 Oxygen Delivery Method Oxygen Flow Rate 08/28/24 21:00 08/28/24 21:01 08/28/24 21:01 Temperature Pulse Rate 116 H 114 H Respiratory Rate 40 H 30 H Blood Pressure 84/55 O2 Sat by Pulse Oximetry 95 99 Oxygen Delivery Method Oxygen Flow Rate 08/28/24 21:01 08/28/24 21:02 08/28/24 21:02 Temperature Pulse Rate Respiratory Rate Blood Pressure 84/55 96/52 96/52 O2 Sat by Pulse Oximetry Oxygen Delivery Method Oxygen Flow Rate 08/28/24 21:02 08/28/24 21:15 08/28/24 21:30 Temperature Pulse Rate 109 H 104 H 106 H Respiratory Rate 37 H 19 19 Blood Pressure O2 Sat by Pulse Oximetry 100 100 95 Oxygen Delivery Method Oxygen Flow Rate 08/28/24 21:07 08/28/24 21:45 08/28/24 22:00 Temperature Pulse Rate 106 H Respiratory Rate 18 17 Blood Pressure 129/61 O2 Sat by Pulse Oximetry 98 Oxygen Delivery Method Oxygen Flow Rate 08/28/24 22:00 08/28/24 22:15 08/28/24 22:30 Temperature Pulse Rate 105 H 106 H 105 H Respiratory Rate 19 24 17 Blood Pressure O2 Sat by Pulse Oximetry 95 93 L 98 Oxygen Delivery Method Oxygen Flow Rate 08/28/24 22:45 08/28/24 23:00 08/28/24 23:00 Temperature Pulse Rate 105 H 103 H Respiratory Rate 22 20 Blood Pressure 131/68 O2 Sat by Pulse Oximetry 95 100 Oxygen Delivery Method Oxygen Flow Rate 08/28/24 23:15 08/28/24 23:30 08/28/24 23:45 Temperature Pulse Rate 122 H 126 H 117 H Respiratory Rate 21 36 H 50 H Blood Pressure O2 Sat by Pulse Oximetry 100 98 99 Oxygen Delivery Method Oxygen Flow Rate 08/29/24 00:00 08/29/24 00:01 08/29/24 00:01 Temperature Pulse Rate 116 H 113 H Respiratory Rate 36 H 29 H Blood Pressure 121/84 O2 Sat by Pulse Oximetry 97 99 Oxygen Delivery Method Oxygen Flow Rate 08/29/24 00:15 08/29/24 00:30 08/29/24 00:45 Temperature 98.3 F Pulse Rate 118 H 108 H 106 H Respiratory Rate 28 H 30 H Blood Pressure O2 Sat by Pulse Oximetry 91 L 100 100 Oxygen Delivery Method Oxygen Flow Rate 08/29/24 01:00 08/29/24 01:00 08/29/24 01:15 Temperature Pulse Rate 102 H 105 H Respiratory Rate 22 39 H Blood Pressure 113/57 O2 Sat by Pulse Oximetry 100 100 Oxygen Delivery Method Oxygen Flow Rate 08/29/24 01:30 08/29/24 01:45 08/29/24 02:00 Temperature Pulse Rate 103 H 101 H 99 H Respiratory Rate 18 23 26 H Blood Pressure O2 Sat by Pulse Oximetry 99 100 100 Oxygen Delivery Method Oxygen Flow Rate 08/29/24 02:01 08/29/24 02:01 08/29/24 02:19 Temperature Pulse Rate 104 H Respiratory Rate 43 H 22 Blood Pressure 135/64 O2 Sat by Pulse Oximetry 100 Oxygen Delivery Method Oxygen Flow Rate 08/29/24 02:15 08/29/24 02:30 08/29/24 02:45 Temperature Pulse Rate 104 H 102 H 97 H Respiratory Rate 43 H 62 H 30 H Blood Pressure O2 Sat by Pulse Oximetry 100 99 100 Oxygen Delivery Method Oxygen Flow Rate 08/29/24 03:00 08/29/24 03:00 08/29/24 03:16 Temperature Pulse Rate 88 Respiratory Rate 20 22 Blood Pressure 157/75 O2 Sat by Pulse Oximetry 100 Oxygen Delivery Method Oxygen Flow Rate 08/29/24 03:15 08/29/24 03:30 08/29/24 03:45 Temperature Pulse Rate 87 91 H 96 H Respiratory Rate 15 20 37 H Blood Pressure O2 Sat by Pulse Oximetry 100 100 99 Oxygen Delivery Method Oxygen Flow Rate 08/29/24 04:00 08/29/24 04:01 08/29/24 04:01 Temperature 98.7 F Pulse Rate 93 H 96 H Respiratory Rate 25 H 23 Blood Pressure 193/91 O2 Sat by Pulse Oximetry 100 100 Oxygen Delivery Method Oxygen Flow Rate 08/29/24 04:12 08/29/24 04:12 08/29/24 04:15 Temperature Pulse Rate 85 85 Respiratory Rate 17 18 Blood Pressure 167/91 O2 Sat by Pulse Oximetry 100 100 Oxygen Delivery Method Oxygen Flow Rate 08/29/24 04:30 08/29/24 04:45 08/29/24 05:00 Temperature Pulse Rate 97 H 85 96 H Respiratory Rate 43 H 15 28 H Blood Pressure O2 Sat by Pulse Oximetry 100 100 100 Oxygen Delivery Method Oxygen Flow Rate 08/29/24 05:01 08/29/24 05:01 08/29/24 05:02 Temperature Pulse Rate 95 H Respiratory Rate 24 Blood Pressure 191/102 163/77 O2 Sat by Pulse Oximetry 100 Oxygen Delivery Method Oxygen Flow Rate 08/29/24 05:02 08/29/24 05:15 08/29/24 05:30 Temperature Pulse Rate 96 H 92 H 96 H Respiratory Rate 35 H 33 H 48 H Blood Pressure O2 Sat by Pulse Oximetry 100 100 100 Oxygen Delivery Method Oxygen Flow Rate 08/29/24 05:45 08/29/24 06:00 08/29/24 06:00 Temperature Pulse Rate 85 86 Respiratory Rate 18 22 Blood Pressure 185/90 O2 Sat by Pulse Oximetry 100 100 Oxygen Delivery Method Oxygen Flow Rate 08/29/24 07:00 08/29/24 08:00 08/29/24 08:55 Temperature 98.1 F Pulse Rate 86 93 H Respiratory Rate 24 24 22 Blood Pressure 148/57 128/89 O2 Sat by Pulse Oximetry 100 100 Oxygen Delivery Method Room Air Room Air Oxygen Flow Rate 08/29/24 13:36 08/29/24 07:00 08/29/24 09:00 Temperature Pulse Rate 96 H Respiratory Rate 24 22 Blood Pressure 129/60 O2 Sat by Pulse Oximetry 100 Oxygen Delivery Method Room Air Room Air Oxygen Flow Rate 08/29/24 10:00 08/29/24 11:00 08/29/24 12:00 Temperature 98.0 F Pulse Rate 99 H 93 H 93 H Respiratory Rate 22 16 22 Blood Pressure 124/58 125/60 111/53 O2 Sat by Pulse Oximetry 100 100 99 Oxygen Delivery Method Room Air Room Air Room Air Oxygen Flow Rate 08/29/24 13:00 08/29/24 09:55 08/29/24 15:00 Temperature Pulse Rate 93 H 98 H Respiratory Rate 16 20 20 Blood Pressure 134/69 137/63 O2 Sat by Pulse Oximetry 99 100 Oxygen Delivery Method Room Air Room Air Oxygen Flow Rate 08/29/24 16:00 08/29/24 14:36 08/29/24 17:00 Temperature 98.3 F Pulse Rate 83 84 Respiratory Rate 20 21 19 Blood Pressure 154/75 137/72 O2 Sat by Pulse Oximetry 100 100 Oxygen Delivery Method Room Air Room Air Oxygen Flow Rate 08/29/24 18:00 08/29/24 12:00 08/29/24 19:00 Temperature Pulse Rate 99 H 95 H 92 H Respiratory Rate 21 21 20 Blood Pressure 130/76 O2 Sat by Pulse Oximetry 100 95 100 Oxygen Delivery Method Room Air Room Air Oxygen Flow Rate 08/29/24 20:00 08/29/24 20:30 08/29/24 20:30 Temperature Pulse Rate 85 90 Respiratory Rate 18 Blood Pressure 129/68 O2 Sat by Pulse Oximetry 100 100 Oxygen Delivery Method Room Air Room Air Oxygen Flow Rate 08/29/24 21:15 08/29/24 19:20 08/29/24 19:00 Temperature 98.2 F Pulse Rate Respiratory Rate 18 Blood Pressure O2 Sat by Pulse Oximetry Oxygen Delivery Method Room Air Oxygen Flow Rate 08/29/24 21:00 08/29/24 22:00 08/29/24 23:00 Temperature Pulse Rate 87 91 H 94 H Respiratory Rate 19 18 22 Blood Pressure 165/77 169/93 142/61 O2 Sat by Pulse Oximetry 100 100 96 Oxygen Delivery Method Room Air Room Air Room Air Oxygen Flow Rate 08/29/24 22:15 08/30/24 00:00 08/30/24 01:00 Temperature 98.3 F Pulse Rate 92 H 93 H Respiratory Rate 22 18 22 Blood Pressure 157/89 144/80 O2 Sat by Pulse Oximetry 99 100 Oxygen Delivery Method Room Air Room Air Oxygen Flow Rate 08/30/24 02:00 08/30/24 03:00 08/30/24 04:00 Temperature Pulse Rate 88 83 89 Respiratory Rate 22 18 24 Blood Pressure 149/78 171/79 156/67 O2 Sat by Pulse Oximetry 98 100 97 Oxygen Delivery Method Room Air Room Air Room Air Oxygen Flow Rate 08/30/24 05:00 08/30/24 06:00 08/30/24 07:00 Temperature 98.4 F Pulse Rate 81 83 Respiratory Rate 16 20 Blood Pressure 170/83 179/84 O2 Sat by Pulse Oximetry 100 100 Oxygen Delivery Method Room Air Room Air Room Air Oxygen Flow Rate 08/30/24 07:00 08/30/24 08:00 08/30/24 09:00 Temperature 97.9 F Pulse Rate 83 89 79 Respiratory Rate 18 18 18 Blood Pressure 188/84 186/84 153/77 O2 Sat by Pulse Oximetry 100 100 100 Oxygen Delivery Method Room Air Room Air Room Air Oxygen Flow Rate 08/30/24 08:41 08/30/24 10:00 08/30/24 11:00 Temperature Pulse Rate 79 75 Respiratory Rate 20 20 18 Blood Pressure 168/75 140/71 O2 Sat by Pulse Oximetry 100 100 Oxygen Delivery Method Room Air Room Air Oxygen Flow Rate 08/30/24 12:00 08/30/24 12:15 08/30/24 15:05 Temperature 99.3 F Pulse Rate 81 78 90 Respiratory Rate 20 18 19 Blood Pressure 141/68 145/79 119/69 O2 Sat by Pulse Oximetry 100 100 100 Oxygen Delivery Method Room Air Room Air Nasal Cannula Oxygen Flow Rate 3 08/30/24 15:20 08/30/24 15:35 08/30/24 15:50 Temperature 99.3 F 99.1 F 99.1 F Pulse Rate 89 89 89 Respiratory Rate 18 21 19 Blood Pressure 114/68 125/70 123/72 O2 Sat by Pulse Oximetry 100 100 100 Oxygen Delivery Method Nasal Cannula Nasal Cannula Nasal Cannula Oxygen Flow Rate 3 3 3 08/30/24 16:05 08/30/24 17:05 08/30/24 18:00 Temperature 98.7 F 98.3 F 98.8 F Pulse Rate 88 91 H 88 Respiratory Rate 19 20 21 Blood Pressure 118/73 132/66 110/61 O2 Sat by Pulse Oximetry 100 100 100 Oxygen Delivery Method Nasal Cannula Nasal Cannula Room Air Oxygen Flow Rate 3 1 08/30/24 09:41 08/30/24 19:00 08/30/24 19:00 Temperature Pulse Rate 91 H Respiratory Rate 20 22 Blood Pressure O2 Sat by Pulse Oximetry 100 Oxygen Delivery Method Room Air Oxygen Flow Rate 08/30/24 19:01 08/30/24 20:03 08/30/24 20:03 Temperature 98.7 F 98.8 F Pulse Rate 93 H Respiratory Rate 24 Blood Pressure 130/61 144/81 O2 Sat by Pulse Oximetry 100 Oxygen Delivery Method Oxygen Flow Rate 08/30/24 21:00 08/30/24 21:00 08/30/24 22:00 Temperature Pulse Rate 96 H 99 H Respiratory Rate 22 21 Blood Pressure 100/55 O2 Sat by Pulse Oximetry 100 98 Oxygen Delivery Method Oxygen Flow Rate 08/30/24 22:00 08/30/24 23:00 08/30/24 23:01 Temperature Pulse Rate 93 H Respiratory Rate 25 H Blood Pressure 106/78 105/62 O2 Sat by Pulse Oximetry 100 Oxygen Delivery Method Oxygen Flow Rate 08/31/24 00:00 08/31/24 00:00 08/31/24 01:00 Temperature 98.6 F Pulse Rate 93 H Respiratory Rate 22 Blood Pressure 126/74 121/65 O2 Sat by Pulse Oximetry 100 Oxygen Delivery Method Oxygen Flow Rate 08/31/24 01:00 08/31/24 02:21 08/31/24 02:00 Temperature Pulse Rate 97 H Respiratory Rate 22 22 Blood Pressure 118/66 O2 Sat by Pulse Oximetry 100 Oxygen Delivery Method Oxygen Flow Rate 08/31/24 02:00 08/31/24 03:00 08/31/24 03:00 Temperature Pulse Rate 89 97 H Respiratory Rate 26 H 18 Blood Pressure 109/61 O2 Sat by Pulse Oximetry 100 100 Oxygen Delivery Method Oxygen Flow Rate 08/31/24 04:00 08/31/24 04:02 08/31/24 05:00 Temperature 98.9 F Pulse Rate 96 H Respiratory Rate 26 H Blood Pressure 94/53 100/58 O2 Sat by Pulse Oximetry 100 Oxygen Delivery Method Oxygen Flow Rate 08/31/24 05:00 08/31/24 06:00 08/31/24 06:00 Temperature Pulse Rate 93 H 98 H Respiratory Rate 21 22 Blood Pressure 93/51 O2 Sat by Pulse Oximetry 100 100 Oxygen Delivery Method Oxygen Flow Rate 08/31/24 07:00 08/31/24 07:00 08/31/24 08:00 Temperature 99.6 F 99.6 F Pulse Rate 94 H 94 H Respiratory Rate 22 22 Blood Pressure 150/68 150/68 O2 Sat by Pulse Oximetry 100 100 Oxygen Delivery Method Room Air Oxygen Flow Rate Labs: Laboratory Last Values WBC 11.3 X10^3/uL (3.6-10.0) H 08/31/24 04:24 RBC 2.67 X10^6/uL (4.7-6.0) L 08/31/24 04:24 Hgb 8.9 g/dL (13.5-18.0) L D 08/31/24 04:24 Hct 25.2 % (42.0-54.0) L 08/31/24 04:24 MCV 94.6 fL (80.0-100.0) 08/31/24 04:24 MCH 33.4 pg (27.0-34.0) 08/31/24 04:24 MCHC 35.3 g/dL (33.0-35.0) H 08/31/24 04:24 RDW 13.6 % (11.6-16.5) 08/31/24 04:24 Plt Count 333 X10^3/uL (150.0-450.0) 08/31/24 04:24 Plt Count Comment Adequate (ADEQUATE) 08/28/24 20:46 MPV 7.3 fL (7.4-11.0) L 08/31/24 04:24 Neut % (Auto) 88.9 % (42.0-75.0) H 08/31/24 04:24 Lymph % (Auto) 6.8 % (21.0-51.0) L 08/31/24 04:24 [place] % (Auto) 4.1 % (0.0-13.0) 08/31/24 04:24 Eos % (Auto) 0.0 % (0.9-2.9) L 08/31/24 04:24 Baso % (Auto) 0.2 % (0.2-1.0) 08/31/24 04:24 Neut # (Auto) 10.1 x10^3/uL (2.2-4.8) H 08/31/24 04:24 Lymph # (Auto) 0.8 X10^3/uL (1.3-2.9) L 08/31/24 04:24 [place] # (Auto) 0.5 x10^3/uL (0.3-0.8) 08/31/24 04:24 Eos # (Auto) 0.0 x10^3/uL (0.0-0.2) 08/31/24 04:24 Baso # (Auto) 0.0 X10^3/uL (0.0-0.1) 08/31/24 04:24 Absolute Nucleated RBC 0.0 /100WBC 08/31/24 04:24 Total Counted 100 08/28/24 20:46 Neutrophils % (Manual) 93 % (39-76) H 08/28/24 20:46 Lymphocytes % (Manual) 3 % (13-43) L 08/28/24 20:46 Monocytes % (Manual) 4 % (4-9) 08/28/24 20:46 Plt Morphology Comment Normal (NORMAL) 08/28/24 20:46 RBC Morphology Normal (NORMAL) 08/28/24 20:46 APTT 21.0 SECONDS (22.9-36.5) L 08/30/24 08:23 PTT Comment - 08/30/24 08:23 Fibrinogen 215 mg/dL (239-489) L 08/30/24 08:23 Sodium 132 mmol/L (136-145) L 08/31/24 04:24 Corrected Sodium 136 mmol/L (136-145) 08/31/24 04:24 Potassium 4.3 mmol/L (3.5-5.1) 08/31/24 04:24 Chloride 96 mmol/L (98-107) L 08/31/24 04:24 Carbon Dioxide 27.3 mmol/L (21-32) 08/31/24 04:24 BUN 14 mg/dL (7-18) 08/31/24 04:24 Creatinine 1.05 mg/dL (0.70-1.30) 08/31/24 04:24 Est GFR (MDRD) Af Amer > 60 (>60) 08/31/24 04:24 Est GFR (MDRD) Non-Af > 60 (>60) 08/31/24 04:24 Glucose 262 mg/dL (65-99) H 08/31/24 04:24 Calcium 8.0 mg/dL (8.5-10.1) L 08/31/24 04:24 Corrected Calcium 9.3 mg/dL (8.5-10.1) 08/31/24 04:24 Magnesium 2.2 mg/dL (2.0-2.9) 08/27/24 06:00 Total Bilirubin 0.30 mg/dL (0.2-1.0) 08/31/24 04:24 AST 296 Units/L (15-37) H 08/31/24 04:24 ALT 144 Units/L (12-78) H 08/31/24 04:24 Alkaline Phosphatase 39 Units/L (46-116) L 08/31/24 04:24 Total Protein 5.3 g/dL (6.4-8.2) L 08/31/24 04:24 Albumin 2.4 g/dL (3.4-5.0) L 08/31/24 04:24 Globulin 2.9 g/dL (2.5-4.5) 08/31/24 04:24 Albumin/Globulin Ratio 0.8 Ratio (1.1-2.1) L 08/31/24 04:24 Reason For Visit: ISCHEMIC LEFT LEG Discharge Date Discharge Date: 08/31/24 Discharge Diagnosis All Active Problems (Updated 08/25/24 @ 20:30 by Angelo Alfonso) Chronic ischemic heart disease (Acute) Gastro-esophageal reflux disease without esophagitis (Acute) Hyperlipidemia (Acute) Essential (primary) hypertension (Acute) Atherosclerosis of [place] arteries of extremities with rest pain, right leg (Acute) Atherosclerosis of [place] arteries of extremities with rest pain, left leg (Acute) Plan of Treatment: Continue with present treatment and follow up plan. Pt is to keep follow up appointment as instructed and take medications as ordered. Discharge Medications Discharge Medications: Iodinated Contrast Media [IVP DYE] Allergy (Verified 01/25/24 22:29) CONTINUE taking the following medications albuterol sulfate 90 mcg/actuation aerosol inhaler 2 puff inhalation Q6H PRN 08/25/24 [History] see below Discharge Plan Discharge Plan Hospital Course: This is a 68 year old male who has had bilateral lower extremity arterial interventions in the past. In January of 2024 he had intervention of a left femoral popliteal bypass graft with stenting of the distal aspect of the graft as well as atherectomy and stenting of the [place] left popliteal artery. He has been on aspirin and blood thinner and presented to the hospital in [place], [place] complaining of severe rest pain of the left leg and foot and CTA showed complete thrombosis and the left femoral popliteal bypass as well as the [place] arteries of the left leg. He was admitted and placed on therapeutic Lovenox and monitored. Pain controlled with Percocet and IV dilaudid . He was taken initially to the operating Suite on August 28 where he underwent arteriogram showing complete occlusion and thrombosis of the left femoral popliteal bypass graft with complete occlusion of all runoff. EKOS thrombolytic catheter placed all the way down the left anterior tibial artery and he underwent 36 hours of directed thrombolysis with relief of rest pain. He was taken back to the OR on August 30 where repeat arteriogram showed the femoral popliteal bypass graft to be patent as well as patetn peroneal and anterior tibial tibial arteries with some disease at the takeoff of both of these. He underwent Smart Claw removal of residual thrombosis of the proximal femoral popliteal bypass graft as well as stenting of the graft proximally and angioplasty of the peroneal and anterior tibial arteries into the tibial peroneal trunk. Balloon anngioplasty of the left anterior tibial artery taken all the way into the dordalis pedis artery of the left foot . Flow is present but not robust. Postoperatively he has had no rest pain but does have evidence of foot drop of the left foot. Physical therapy is seeing him and he will be discharged on a walker with [facility] for outpatient Physical Therapy. He will f/u with me in 1 week. He will continue his usual medications to include daily aspirin ,pletal and Xarelto 2.5 milligrams BID. Patient Disposition: HOME HEALTH SERVICE Condition: Stable Health Concerns: Post Hospitalization: new medications and changes needed to prevent readmission or further decline. Pt educated and given instructions on all concerns. Care Plan Goals: Problem: Altered Tissue Perfusion Goal: Adequate Tissue Perfusion Instructions: Follow provided instructions. Follow up with primary physician as directed. Contact primary care physician or report to the closest Emergency Room if condition worsens. Plan of Treatment: Continue with present treatment and follow up plan. Pt is to keep follow up appointment as instructed and take medications as ordered. Prescription drug monitoring program results: PDMP was not reviewed Prescriptions: New Xarelto 2.5 mg tablet 2.5 mg PO BID Qty: 60 6RF oxycodone-acetaminophen [Percocet] 5-325 mg tablet 1 tab PO Q6H MDD 4 PRNQty: 30 0RF Continued albuterol sulfate 90 mcg/actuation HFA aerosol inhaler 2 puff INHALATION Q6H PRN atorvastatin 80 mg tablet 80 mg PO QDAY cilostazol 50 mg tablet 50 mg PO BID metoprolol succinate 50 mg tablet extended release 24 hr 50 mg PO QDAY lisinopril 20 mg tablet 20 mg PO QDAY aspirin 81 mg Tablet,Delayed Release (Dr/Ec) 81 mg PO DAILY Breztri Aerosphere 160-9-4.8 mcg/actuation HFA aerosol inhaler 2 inh INHALATION BID Follow ups/Referrals Follow ups/Referrals: [facility] [STAFF PHYSICIAN] - Angelo Alfonso [Primary Care Provider] - 09/05/24 3:30 pm Instructions Instructions: Atherosclerosis, Poor Blood Flow (Peripheral Vascular Disease): What to Know, Endovascular Therapy for Peripheral Vascular Disease: What to Know After Stand Alone Forms: Find Help Web Site, Post Hospital Follow Up Care
[2024-08-31 15:46] VITALS: TEMP 99.3
[2024-08-31 15:48] VITALS: BP 108/55; PULSE 91; RESP 27
[2024-08-31] MEDS ORDERED: PHENOBARBITAL TAB 15 MG (16.2MG) PO SCH (17:00)
--- NOTE | 2024-09-03 14:30 | DR.OPNOTE ---
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 The patient was given IV sedation supervised by myself. The entire right groin and entire left leg were prepped and draped in sterile fashion. Timeout for the procedure obtained. The EKOS catheter was discontinued by myself. Through the [place] sheath we placed a 0.035 inch advantage Glidewire and placed a [place] catheter over it. Arteriogram through the [place] sheath showed the femoral-popliteal bypass graft now to be patent with some evidence of possible old clot in the proximal portion of the graft. Arteriogram through the [place] catheter showed the trifurcation vessels to now be open however there was residual disease of the anterior tibial artery distally and of the peroneal artery.Through the [place] catheter we placed a 0.018 inch wire down the left peroneal artery as selective catrherization and then balloon dilated this artery with a [employer] 2.5 mm x 220 mm [place] balloon inflating it for 1 minute. This removed and then we then did selective catheterization of the left anterior tibial artery and ballooned it with the same 2.5 mm x 2020 mm [place] balloon. Postprocedure arteriogram still showed some stenosis distally and poor filling of the left dorsalis pedis artery. [place] catheter placed over the 0.018 inch wire and we replaced this with a 0.014 inch wire and over this wire we placed a 2 mm x 150 mm [employer] [employer] balloon into the dorsalis pedis and inflated it. Post arteriogram distally showed good result with flow into the foot. Arteriogram of the proximal portion of the graft still showed some residual clot versus chronic disease of the proximal portion of the left [place] bypass graft therefore we balloon dilated this with a [employer] [place] 6 mm x 200 mm balloon inflating for 3 minutes. Post procedure arteriogram still showed residual disease therefore over the wire replaced and Sudha 7 mm x 150 mm stent of the proximal portion of the graft then balloon dilated it with the 6 mm balloon. Posted arteriogram showed excellent result now. All wires and devices removed. The [place] sheath pulled back into the aorta and a 0.035 Advantage Glidewire placed through it. [place] sheath exchanged for an Angio-Seal device over the wire used to close the puncture of the right femoral artery. Dressing applied. Patient taken back to the intensive care unit for recovery. PROCEDURE: Removal EKOS thrombolytic catheter, thrombectomy of upper part left [place] femoral-popliteal bypass graft, angioplasty left peroneal artery, angioplasty left anterior tibial artery and angioplasty left dorsalis pedis artery, drug-coated balloon angioplasty proximal part of the left leg [place] graft ultimately requiring placement of an Sudha 7 mm x 150 mm stent. Type of Anesthesia: Local (0.5% Marcaine) and General Anesthetic w/ETT (Plus MAC) Findings: Patient's status post directed thrombolysis left leg . Now with resolution of thrombosis of the left [place] femoral-popliteal bypass graft as well as resolution of thrombosis of the trifurcation level vessels with some residual disease of the left peroneal artery and left anterior tibial arteries requiring Smart Claw thrombectomy of the upper part of the left [place] femoral-popliteal bypass graft, angioplasty left peroneal artery, angioplasty left anterior tibial artery and angioplasty left dorsalis pedis artery, drug- coated balloon angioplasty of the proximal part of the left sided [place] graft ultimately requiring an Sudha 7 mm 150 mm drug-eluting stent Type of Fluids Used:: Lactated Ringers Total Amount of Fluid Infused:: 500cc Urine output: 200cc EBL: 100cc Hardware: Sudha 7mmx 150 mm stent Complications:: none Needle/Sponge Count:: correct Disposition/Condition: Pt. tolerated procedure without difficulty. Taken to the ICU in stable condition.
== END 2024-08-31 15:35 | disposition home health service (06) | DRG 279 ==
LOC: MED/SURG → ICU 08-28 11:14
PROVIDERS: ADMIT Surgery; ATTEND Surgery
DX: E78.5 Hyperlipidemia, unspecified; I70.222 Atherosclerosis of native arteries of extremities with rest pain, left leg; I10 Essential (primary) hypertension; R26.89 Other abnormalities of gait and mobility; I25.10 Atherosclerotic heart disease of native coronary artery without angina pectoris; R79.1 Abnormal coagulation profile; K21.9 Gastro-esophageal reflux disease without esophagitis; T82.868A Thrombosis due to vascular prosthetic devices, implants and grafts, initial encounter

== ENCOUNTER 2024-10-18 09:39 | Inpatient (IN) ==
[2024-10-18] MEDS: NOZIN NASAL SANITIZER TP ONE (10:10)
[2024-10-18 10:41] VITALS: BMI 19.5
[2024-10-18] MEDS: LR 1,000 ML IV 1,000 ML IV ONE (10:42)
[2024-10-18] MEDS: PEPCID 20 MG VIAL ONE (10:47)
[2024-10-18] MEDS: DIPRIVAN VIAL 20 ML ONE (10:47)
[2024-10-18] MEDS: ZOFRAN INJ 4 MG VIAL ONE (10:47)
[2024-10-18] MEDS: REGLAN INJ 10 MG VIAL ONE (10:47)
[2024-10-18] MEDS: FENTANYL VIAL INJ 100 mcg ONE (10:50)
[2024-10-18] MEDS: LR 1,000 ML IV 800 ML IV PRN (10:50)
[2024-10-18] MEDS: VERSED ONE (10:51)
[2024-10-18] MEDS ORDERED: XYLOCAINE 2 % (PLAIN) ONE (10:55)
[2024-10-18] MEDS: ANCEF VIAL 1 GRAM ONE (10:55)
[2024-10-18] MEDS: REGLAN INJ 10 MG VIAL IVP PRN (10:55)
[2024-10-18] MEDS: NS 100 ML IV 100 ML ONE (10:55)
[2024-10-18] MEDS ORDERED: KETAMINE HCL ONE (10:55)
[2024-10-18] MEDS ORDERED: ULTANE GAS IN ONE (10:55)
[2024-10-18] MEDS ORDERED: PRECEDEX INJ VIAL ONE (10:55)
[2024-10-18] MEDS: VERSED IVP PRN (10:55)
[2024-10-18] MEDS: ZOFRAN INJ 4 MG VIAL IVP PRN (10:55)
[2024-10-18] MEDS: PEPCID 20 MG VIAL IVP PRN (10:55)
[2024-10-18] MEDS: ANCEF VIAL 1 GRAM IV PRN (10:58)
[2024-10-18] MEDS ORDERED: XYLOCAINE 2 % (PLAIN) PRN (11:02)
[2024-10-18] MEDS: DIPRIVAN VIAL 100 ML IVP PRN (11:03)
[2024-10-18] MEDS: OFIRMEV IV 1000 MG VIAL 1,000 MG/100 ML VIAL IV ONE (11:04)
[2024-10-18] MEDS: FENTANYL VIAL INJ 100 mcg IVP PRN (11:07)
[2024-10-18] MEDS: PRECEDEX INJ VIAL IVP PRN (11:07)
[2024-10-18] MEDS: OFIRMEV IV 1000 MG VIAL 1,000 MG/100 ML VIAL IV PRN (11:10)
[2024-10-18] MEDS: NEO-SYNEPHRINE INJ ONE (11:13)
[2024-10-18] MEDS: KETAMINE HCL IV PRN (11:24)
[2024-10-18] MEDS: DILAUDID INJ ONE (11:26)
[2024-10-18] MEDS ORDERED: DILAUDID INJ IVP PRN (11:30)
[2024-10-18] MEDS ORDERED: BARHEMSYS INJ IVP PRN (11:30)
[2024-10-18] MEDS ORDERED: BENADRYL INJ 50 MG VIAL IVP PRN (11:30)
[2024-10-18] MEDS ORDERED: ZOFRAN INJ 4 MG VIAL IVP PRN ×2 (11:30→12:50)
[2024-10-18] MEDS: NEO-SYNEPHRINE INJ IVP PRN (11:34)
[2024-10-18] MEDS: DILAUDID INJ IVP PRN ×2 (11:39→19:44)
--- NOTE | 2024-10-18 11:50 | OR.IMMED ---
IMMEDIATE POST-OP NOTE Immediate Post-Op Note Date of surgery/procedure: 10/18/24 Pre-Op Diagnosis: Gangrenous left foot Post-Op Diagnosis: Same, abscess in the anterior tibial compartment Procedure: Left below-knee amputation Description of Procedure: Dictated Surgeon/Consumer Recruiter: Angelo Alfonso MD, FACS Findings: Gangrenous left foot, abscess in the anterior tibial Estimated Blood Loss: 150 cc Drains: Manpreet Grissom (#10 MARYANN placed in abscess cavity of anterior tibial compartment ) Progress Notes: To PACU, then admit to floor
[2024-10-18] MEDS ORDERED: NITROSTAT SL PRN (11:52)
[2024-10-18 12:25] LABS: BASOPHILS # (AUTO) 0.1 X10^3/uL (0.0-0.1); HEMOGLOBIN 7.3 g/dL (13.5-18.0); MEAN PLATELET VOLUME 5.6 fL (7.4-11.0)
[2024-10-18 12:28] LABS: BASOPHILS % (AUTO) 0.4 % (0.2-1.0); HEMATOCRIT 22.2 % (42.0-54.0); LYMPHOCYTES # (AUTO) 1.3 X10^3/uL (1.3-2.9); LYMPHOCYTES % (AUTO) 3.9 % (21.0-51.0); MEAN CORPUSCULAR HGB CONC 32.9 g/dL (33.0-35.0); MEAN CORPUSCULAR VOLUME 85.1 fL (80.0-100.0); MONOCYTES # (AUTO) 1.7 x10^3/uL (0.3-0.8); MONOCYTES % (AUTO) 5.2 % (0.0-13.0); NEUTROPHILS # (AUTO) 29.4 x10^3/uL (2.2-4.8); NEUTROPHILS % (AUTO) 90.5 % (42.0-75.0); PLATELET COUNT 856 X10^3/uL (150.0-450.0); RED BLOOD COUNT 2.61 X10^6/uL (4.7-6.0); RED CELL DISTRIBUTION WIDTH 16.6 % (11.6-16.5)
[2024-10-18 12:33] LABS: WHITE BLOOD COUNT 32.5 X10^3/uL (3.6-10.0)
[2024-10-18] MEDS: LR 1,000 ML IV 1,000 ML IV SCH (12:53)
[2024-10-18 13:02] LABS: PLATELET MORPHOLOGY COMMENT NORMAL (NORMAL)
[2024-10-18] MEDS: NS 250 ML IV 25 ML IV PRN (14:12)
[2024-10-18] MEDS: ZOSYN VIAL 3.375 GRAMS 3.375 G in NS 100 ML IV 100 ML IV SCH (14:12)
[2024-10-18] MEDS: PERCOCET TAB 5/325 MG PO PRN (16:24)
[2024-10-18] MEDS: ELIQUIS PO SCH (21:00)
[2024-10-19 06:11] LABS: BASOPHILS # (AUTO) 0.1 X10^3/uL (0.0-0.1); BASOPHILS % (AUTO) 0.5 % (0.2-1.0); EOSINOPHILS % (AUTO) 0.2 % (0.9-2.9); HEMATOCRIT 22.6 % (42.0-54.0); HEMOGLOBIN 7.4 g/dL (13.5-18.0); LYMPHOCYTES # (AUTO) 1.6 X10^3/uL (1.3-2.9); LYMPHOCYTES % (AUTO) 8.4 % (21.0-51.0); MEAN CORPUSCULAR HEMOGLOBIN 27.7 pg (27.0-34.0); MEAN CORPUSCULAR HGB CONC 32.6 g/dL (33.0-35.0); MEAN CORPUSCULAR VOLUME 84.9 fL (80.0-100.0); MEAN PLATELET VOLUME 5.8 fL (7.4-11.0); MONOCYTES # (AUTO) 0.9 x10^3/uL (0.3-0.8); NEUTROPHILS # (AUTO) 15.9 x10^3/uL (2.2-4.8); NEUTROPHILS % (AUTO) 85.9 % (42.0-75.0); PLATELET COUNT 876 X10^3/uL (150.0-450.0); RED BLOOD COUNT 2.66 X10^6/uL (4.7-6.0); RED CELL DISTRIBUTION WIDTH 16.5 % (11.6-16.5)
[2024-10-19 06:24] LABS: WHITE BLOOD COUNT 18.5 X10^3/uL (3.6-10.0)
[2024-10-19 06:27] LABS: ALANINE AMINOTRANSFERASE 20 Units/L (12-78); ALBUMIN 1.4 g/dL (3.4-5.0); ALKALINE PHOSPHATASE 98 Units/L (46-116); ASPARTATE AMINO TRANSFERASE 29 Units/L (15-37); BLOOD UREA NITROGEN 9 mg/dL (7-18); CALCIUM 7.8 mg/dL (8.5-10.1); CARBON DIOXIDE 28.9 mmol/L (21-32); CHLORIDE 98 mmol/L (98-107); COR CA(FOR HYPOALB) 9.9 mg/dL (8.5-10.1); CREATININE 0.75 mg/dL (0.70-1.30); GLUCOSE 103 mg/dL (65-99); MAGNESIUM 1.8 mg/dL (2.0-2.9); POTASSIUM 3.6 mmol/L (3.5-5.1); SODIUM 134 mmol/L (136-145); TOTAL PROTEIN 5.5 g/dL (6.4-8.2); eGFR NON BLACK RACES > 60 (>60)
[2024-10-19] MEDS ORDERED: CONSULT PHARMACY - POTASSIUM & MAGNESIUM XX SCH (08:00)
[2024-10-19] MEDS ORDERED: ZESTRIL TAB 20 MG ONE (08:15)
[2024-10-19] MEDS: ASPIRIN EC 81 MG PO SCH (08:21)
[2024-10-19] MEDS: PROTONIX TAB 40 MG PO SCH (08:21)
[2024-10-19] MEDS: ZESTRIL TAB 20 MG PO SCH (08:21)
[2024-10-19] MEDS: LIPITOR TAB 80 MG PO SCH (08:21)
[2024-10-19] MEDS: TOPROL XL PO SCH (08:21)
[2024-10-19] MEDS: MAG-OX TAB PO SCH (08:27)
[2024-10-19] MEDS: K-DUR TAB 20 MEQ PO SCH (08:27)
--- NOTE | 2024-10-19 23:41 | NOTE.SOAP ---
Soap Note Note for Day of Date of Exam: 10/19/24 Subjective Data Subjective Data: Postoperative day #1 after left below-knee amputation for gangrenous leg. Patient evidence of abscess in the anterior tibial compartment and drain placed in it. Patient currently on IV antibiotics. Cultures pending. Patient has been seen by home health who will begin seeing patient tomorrow. He is doing much better with marked relief of pain. Tolerating a diet. Already appears better. Objective Data Temperature: 98.9 F Pulse Rate: 75 Respiratory Rate: 19 Blood Pressure: 111/54 O2 Sat by Pulse Oximetry: 97 Objective Data: Doing well. Left leg dressing intact without drainage or bleeding Assessment Assessment: Status post left below-knee potation or gangrenous leg. Plan Plan: Plan discharge tomorrow
[2024-10-20 06:39] LABS: BASOPHILS # (AUTO) 0.2 X10^3/uL (0.0-0.1); BASOPHILS % (AUTO) 1.2 % (0.2-1.0); EOSINOPHILS % (AUTO) 0.3 % (0.9-2.9); HEMATOCRIT 22.5 % (42.0-54.0); HEMOGLOBIN 7.4 g/dL (13.5-18.0); LYMPHOCYTES # (AUTO) 2.1 X10^3/uL (1.3-2.9); MEAN CORPUSCULAR HEMOGLOBIN 28.1 pg (27.0-34.0); MEAN CORPUSCULAR HGB CONC 32.9 g/dL (33.0-35.0); MEAN CORPUSCULAR VOLUME 85.4 fL (80.0-100.0); MEAN PLATELET VOLUME 5.9 fL (7.4-11.0); MONOCYTES # (AUTO) 0.9 x10^3/uL (0.3-0.8); MONOCYTES % (AUTO) 5.6 % (0.0-13.0); NEUTROPHILS # (AUTO) 13.1 x10^3/uL (2.2-4.8); NEUTROPHILS % (AUTO) 79.9 % (42.0-75.0); PLATELET COUNT 851 X10^3/uL (150.0-450.0); RED BLOOD COUNT 2.64 X10^6/uL (4.7-6.0); RED CELL DISTRIBUTION WIDTH 16.2 % (11.6-16.5); WHITE BLOOD COUNT 16.4 X10^3/uL (3.6-10.0)
[2024-10-20 07:04] LABS: ALANINE AMINOTRANSFERASE 23 Units/L (12-78); ALBUMIN 1.5 g/dL (3.4-5.0); ALKALINE PHOSPHATASE 94 Units/L (46-116); ASPARTATE AMINO TRANSFERASE 31 Units/L (15-37); BLOOD UREA NITROGEN 9 mg/dL (7-18); CALCIUM 7.8 mg/dL (8.5-10.1); CARBON DIOXIDE 28.8 mmol/L (21-32); CHLORIDE 97 mmol/L (98-107); COR CA(FOR HYPOALB) 9.8 mg/dL (8.5-10.1); COR NA(FOR HYPERGLY) 133 mmol/L (136-145); CREATININE 0.75 mg/dL (0.70-1.30); GLUCOSE 115 mg/dL (65-99); POTASSIUM 3.3 mmol/L (3.5-5.1); SODIUM 133 mmol/L (136-145); eGFR NON BLACK RACES > 60 (>60)
[2024-10-20] MEDS: ZESTRIL TAB 20 MG ONE (10:02)
[2024-10-20] MEDS ORDERED: CONSULT PHARMACY - POTASSIUM & MAGNESIUM XX SCH (17:00)
[2024-10-20] MEDS: K-DUR TAB 20 MEQ PO SCH (17:26)
[2024-10-20] MEDS: MILK OF MAGNESIA PO SCH (20:48)
[2024-10-20] MEDS: COLACE CAP 100 MG PO SCH (20:48)
--- NOTE | 2024-10-20 23:25 | NOTE.SOAP ---
Soap Note Note for Day of Date of Exam: 10/20/24 Subjective Data Subjective Data: Postoperative day 2 after left below-knee amputation. Patient was going to be going home with home health but the family decided now they would like rehab. So we will start the process of her arm placement. He is otherwise doing well pain is relieved and tolerating a regular diet. Objective Data Temperature: 97.5 F Pulse Rate: 74 Respiratory Rate: 18 Blood Pressure: 133/65 O2 Sat by Pulse Oximetry: 93 Objective Data: Dressing intact left leg without drainage or bleeding. Hemoglobin equal 7.4 and was 8.1 on admission Assessment Assessment: Status post left lower amputation Plan Plan: Will seek inpatient rehab status
[2024-10-21 06:16] LABS: BASOPHILS # (AUTO) 0.1 X10^3/uL (0.0-0.1); BASOPHILS % (AUTO) 0.8 % (0.2-1.0); EOSINOPHILS # (AUTO) 0.1 x10^3/uL (0.0-0.2); HEMATOCRIT 23.5 % (42.0-54.0); HEMOGLOBIN 7.7 g/dL (13.5-18.0); LYMPHOCYTES % (AUTO) 15.4 % (21.0-51.0); MEAN CORPUSCULAR HEMOGLOBIN 28.2 pg (27.0-34.0); MEAN CORPUSCULAR HGB CONC 32.9 g/dL (33.0-35.0); MEAN CORPUSCULAR VOLUME 85.6 fL (80.0-100.0); MEAN PLATELET VOLUME 5.7 fL (7.4-11.0); MONOCYTES # (AUTO) 0.7 x10^3/uL (0.3-0.8); MONOCYTES % (AUTO) 5.7 % (0.0-13.0); NEUTROPHILS % (AUTO) 77.1 % (42.0-75.0); PLATELET COUNT 889 X10^3/uL (150.0-450.0); RED BLOOD COUNT 2.74 X10^6/uL (4.7-6.0); RED CELL DISTRIBUTION WIDTH 16.2 % (11.6-16.5)
[2024-10-21 06:27] LABS: ALANINE AMINOTRANSFERASE 35 Units/L (12-78); ALBUMIN 1.5 g/dL (3.4-5.0); ALKALINE PHOSPHATASE 84 Units/L (46-116); ASPARTATE AMINO TRANSFERASE 53 Units/L (15-37); BLOOD UREA NITROGEN 9 mg/dL (7-18); CALCIUM 7.9 mg/dL (8.5-10.1); CARBON DIOXIDE 27.9 mmol/L (21-32); CHLORIDE 99 mmol/L (98-107); COR CA(FOR HYPOALB) 9.9 mg/dL (8.5-10.1); COR NA(FOR HYPERGLY) 135 mmol/L (136-145); CREATININE 0.73 mg/dL (0.70-1.30); GLUCOSE 123 mg/dL (65-99); POTASSIUM 4.1 mmol/L (3.5-5.1); SODIUM 134 mmol/L (136-145); eGFR NON BLACK RACES > 60 (>60)
[2024-10-21] MEDS: ZESTRIL TAB 20 MG ONE (09:07)
--- NOTE | 2024-10-21 17:01 | NOTE.SOAP ---
Soap Note Note for Day of Date of Exam: 10/21/24 Subjective Data Subjective Data: Doing well after left below-knee amputation. Awaiting placement for rehabilitation. Still on IV antibiotics for abscess in the left anterior tibial compartment. Objective Data Temperature: 98.1 F Pulse Rate: 70 Respiratory Rate: 18 Blood Pressure: 137/65 O2 Sat by Pulse Oximetry: 96 Objective Data: Dressing intact left leg with no bleeding. White blood cell count down to 13,000 Assessment Assessment: Status post left below-knee amputation Plan Plan: Continue IV antibiotics. Await placement
[2024-10-21] MEDS: NS 250 ML IV 250 ML IV ONE (21:06)
[2024-10-22 05:39] LABS: BASOPHILS # (AUTO) 0.1 X10^3/uL (0.0-0.1); BLOOD UREA NITROGEN 8 mg/dL (7-18); CALCIUM 7.6 mg/dL (8.5-10.1); CARBON DIOXIDE 25.7 mmol/L (21-32); CHLORIDE 101 mmol/L (98-107); CREATININE 0.63 mg/dL (0.70-1.30); GLUCOSE 92 mg/dL (65-99); MEAN CORPUSCULAR VOLUME 85.8 fL (80.0-100.0); MONOCYTES # (AUTO) 0.8 x10^3/uL (0.3-0.8); SODIUM 133 mmol/L (136-145); WHITE BLOOD COUNT 13.4 X10^3/uL (3.6-10.0); eGFR NON BLACK RACES > 60 (>60)
[2024-10-22 05:43] LABS: BASOPHILS % (AUTO) 0.9 % (0.2-1.0); EOSINOPHILS # (AUTO) 0.1 x10^3/uL (0.0-0.2); HEMATOCRIT 21.4 % (42.0-54.0); LYMPHOCYTES % (AUTO) 14.8 % (21.0-51.0); MEAN CORPUSCULAR HEMOGLOBIN 27.4 pg (27.0-34.0); MEAN CORPUSCULAR HGB CONC 31.9 g/dL (33.0-35.0); MEAN PLATELET VOLUME 5.8 fL (7.4-11.0); MONOCYTES % (AUTO) 6.1 % (0.0-13.0); NEUTROPHILS # (AUTO) 10.3 x10^3/uL (2.2-4.8); NEUTROPHILS % (AUTO) 77.2 % (42.0-75.0); PLATELET COUNT 819 X10^3/uL (150.0-450.0); RED BLOOD COUNT 2.49 X10^6/uL (4.7-6.0); RED CELL DISTRIBUTION WIDTH 16.5 % (11.6-16.5)
[2024-10-22 05:59] LABS: HEMOGLOBIN 6.8 g/dL (13.5-18.0)
--- NOTE | 2024-10-22 10:28 | DR.OPNOTE ---
OP NOTE Pre-Op Diagnosis: Gangrene left foot Post-Op Diagnosis: Same Procedure Date Date Of Procedure: 10/18/24 Procedure: PROCEDURE: Left below-knee amputation NARRATIVE: The patient was taken to the operative suite and general endotracheal anesthesia induced. The entire left leg prepped and draped in sterile fashion. Timeout for the procedure obtained. A dog legged and incision was made 1 handsbreadth below the tibial tuberosity, electrocautery used to open the anterior compartment fascia, anterior muscle divided and the anterior tibial anterior tibial artery and vein divided between clamps and tied with 2-0 silk suture ligatures. All skin flaps incisions completed with electrocautery. The periosteum of the tibia elevated. Tibia divided with Gigli saw. Fibula divided with a bone cutter and amputation knife used to complete the amputation. All vessels clamped and tied with 2-0 silk suture ligatures. Wound was irrigated. The rest the bleeding was resolved with electrocautery. The fascia of the 2 flaps approximated with interrupted 2-0 Vicryl sutures. Skin closed with skin may. A compressive dressing applied. Patient tolerated this well. Type of Anesthesia: General Anesthetic w/ETT Findings: As above Specimen/Pathology: Left leg below-knee Type of Fluids Used:: Lactated Ringers Total Amount of Fluid Infused:: 800 cc EBL: 150 cc Drains/Tubes Placed: Manpreet Grissom (X 1in anterior tibial compartment) Cultures: Cultures obtained of abscess in the left anterior tibial compartment Complications:: None Needle/Sponge Count:: Correct Disposition/Condition: Pt. tolerated procedure without difficulty. Extubated in the OR and taken to PACU in stable condition.
[2024-10-22] MEDS: ZESTRIL TAB 20 MG ONE (11:36)
[2024-10-22] MEDS: MAGIC MOUTHWASH (Orig. Formula) MT SCH (11:37)
[2024-10-22] MEDS: INFeD or DEXFERRUM 25 MG in NS 100 ML IV 100 ML IV ONE (11:46)
[2024-10-22] MEDS: INFeD or DEXFERRUM 975 MG in NS 500 ML IV 500 ML IV ONE (14:20)
--- NOTE | 2024-10-22 22:47 | NOTE.SOAP ---
Soap Note Note for Day of Date of Exam: 10/22/24 Subjective Data Subjective Data: Patient status post left leg amputation. Hemoglobin decreased to 6.8. Doing well. Awaiting for placement Objective Data Temperature: 97.6 F Pulse Rate: 82 Respiratory Rate: 20 Blood Pressure: 145/65 O2 Sat by Pulse Oximetry: 95 Objective Data: Good extension left leg. Dressing intact. Minimal MARYANN drainage. White count decreased to 13.4 Assessment Assessment: Status post left below knee amputation amputation. Decreased hemoglobin Plan Plan: Plan iron infusion. Await placement. CBC in a.m.
[2024-10-23 06:42] LABS: ALANINE AMINOTRANSFERASE 45 Units/L (12-78); ALBUMIN 1.5 g/dL (3.4-5.0); ALKALINE PHOSPHATASE 67 Units/L (46-116); ASPARTATE AMINO TRANSFERASE 50 Units/L (15-37); BASOPHILS # (AUTO) 0.1 X10^3/uL (0.0-0.1); BASOPHILS % (AUTO) 0.9 % (0.2-1.0); BLOOD UREA NITROGEN 7 mg/dL (7-18); CALCIUM 7.7 mg/dL (8.5-10.1); CARBON DIOXIDE 23.8 mmol/L (21-32); CHLORIDE 100 mmol/L (98-107); COR CA(FOR HYPOALB) 9.7 mg/dL (8.5-10.1); EOSINOPHILS # (AUTO) 0.1 x10^3/uL (0.0-0.2); EOSINOPHILS % (AUTO) 1.3 % (0.9-2.9); GLUCOSE 94 mg/dL (65-99); HEMOGLOBIN 7.1 g/dL (13.5-18.0); LYMPHOCYTES % (AUTO) 18.7 % (21.0-51.0); MEAN CORPUSCULAR HEMOGLOBIN 28.9 pg (27.0-34.0); MEAN CORPUSCULAR HGB CONC 33.6 g/dL (33.0-35.0); MONOCYTES # (AUTO) 0.7 x10^3/uL (0.3-0.8); MONOCYTES % (AUTO) 6.8 % (0.0-13.0); NEUTROPHILS # (AUTO) 7.6 x10^3/uL (2.2-4.8); NEUTROPHILS % (AUTO) 72.3 % (42.0-75.0); PLATELET COUNT 790 X10^3/uL (150.0-450.0); POTASSIUM 3.9 mmol/L (3.5-5.1); RED BLOOD COUNT 2.44 X10^6/uL (4.7-6.0); RED CELL DISTRIBUTION WIDTH 16.7 % (11.6-16.5); SODIUM 132 mmol/L (136-145); TOTAL PROTEIN 5.7 g/dL (6.4-8.2); WHITE BLOOD COUNT 10.5 X10^3/uL (3.6-10.0); eGFR NON BLACK RACES > 60 (>60)
[2024-10-23 07:48] VITALS: RESP 18
[2024-10-23] MEDS: ZESTRIL TAB 20 MG ONE (08:53)
[2024-10-23] MEDS: APLISOL ID NR (09:54)
--- NOTE | 2024-10-23 10:17 | W.DIS.FURT ---
Summary of Discharge Discharge Summary of Date Date of Exam: 10/23/24 Admission Date Date of Admission: 10/18/24 Admission Diagnosis Hospital Course: This is a 69-year-old male he will multiple history of revascularization of lower extremities and ultimately failed of the left leg resulting in gangrenous changes of the left foot. On October 18, 2024 taken to the operative suite and underwent uncomplicated left below-knee amputation. Hemoglobin at time was 7.3. He has had good pain control. It should be noted at the time of the amputation there was an abscess in the anterior tibial compartment which required drainage. Manpreet-Grissom drain left in place and patient kept on IV antibiotics. Patient has been accepted for inpatient rehab. We will leave the dressing in place with a drain in place. He will see me in 1 week to have the drain removed. He will be on usual medications as above. He also will be given ciprofloxacin 5 mg twice daily x 1 week and Percocet 5 to go tablets 1 over 6 hour PRN Pain. He did not require transfusion and has been hemodynamically stable. Hemoglobin is 7.1 on the day of discharge. Vital Signs: Vital Signs (72 hours) 10/20/24 23:24 10/21/24 17:01 10/22/24 22:47 Temperature 97.5 F L 98.1 F 97.6 F Pulse Rate 74 70 82 Pulse Rate [Brachial] Respiratory Rate 18 18 20 Blood Pressure 133/65 137/65 145/65 Blood Pressure [Left Arm] Blood Pressure [Right Arm] O2 Sat by Pulse Oximetry 93 L 96 95 Oxygen Delivery Method FIO2% 10/20/24 11:20 10/20/24 13:29 10/20/24 12:00 Temperature 98.6 F Pulse Rate Pulse Rate [Brachial] 80 Respiratory Rate 18 18 20 Blood Pressure Blood Pressure [Left Arm] Blood Pressure [Right Arm] 151/72 O2 Sat by Pulse Oximetry 93 L Oxygen Delivery Method Room Air FIO2% 10/20/24 16:00 10/20/24 20:00 10/20/24 20:15 Temperature 97.5 F L 98.8 F Pulse Rate Pulse Rate [Brachial] 70 69 Respiratory Rate 20 18 Blood Pressure Blood Pressure [Left Arm] Blood Pressure [Right Arm] 137/63 133/65 O2 Sat by Pulse Oximetry 95 95 Oxygen Delivery Method Room Air Room Air Room Air FIO2% 10/20/24 20:15 10/20/24 23:35 10/20/24 19:00 Temperature Pulse Rate 74 Pulse Rate [Brachial] Respiratory Rate 19 Blood Pressure Blood Pressure [Left Arm] Blood Pressure [Right Arm] O2 Sat by Pulse Oximetry 93 L Oxygen Delivery Method Room Air FIO2% 10/21/24 00:00 10/21/24 00:35 10/21/24 04:00 Temperature 97.8 F 98 F Pulse Rate Pulse Rate [Brachial] 74 70 Respiratory Rate 20 19 18 Blood Pressure Blood Pressure [Left Arm] Blood Pressure [Right Arm] 171/79 161/75 O2 Sat by Pulse Oximetry 94 L 92 L Oxygen Delivery Method Room Air Room Air FIO2% 10/21/24 07:00 10/21/24 07:46 10/21/24 11:36 Temperature 97.9 F 98.7 F Pulse Rate Pulse Rate [Brachial] 71 75 Respiratory Rate 20 20 Blood Pressure Blood Pressure [Left Arm] Blood Pressure [Right Arm] 169/80 150/71 O2 Sat by Pulse Oximetry 95 94 L Oxygen Delivery Method Room Air Room Air Room Air FIO2% 10/21/24 16:00 10/21/24 19:25 10/21/24 21:23 Temperature 98.1 F 98.4 F Pulse Rate Pulse Rate [Brachial] 70 74 Respiratory Rate 18 19 Blood Pressure Blood Pressure [Left Arm] 151/67 Blood Pressure [Right Arm] 137/65 137/65 O2 Sat by Pulse Oximetry 96 96 Oxygen Delivery Method Room Air Room Air Room Air FIO2% 10/22/24 00:00 10/21/24 19:00 10/22/24 01:42 Temperature 98.0 F Pulse Rate Pulse Rate [Brachial] 84 Respiratory Rate 19 18 Blood Pressure Blood Pressure [Left Arm] Blood Pressure [Right Arm] 163/77 O2 Sat by Pulse Oximetry 94 L Oxygen Delivery Method Room Air Room Air FIO2% 10/22/24 04:00 10/22/24 02:42 10/22/24 09:09 Temperature 98.6 F Pulse Rate Pulse Rate [Brachial] 79 Respiratory Rate 19 18 Blood Pressure Blood Pressure [Left Arm] Blood Pressure [Right Arm] 147/98 O2 Sat by Pulse Oximetry 93 L Oxygen Delivery Method Room Air Room Air FIO2% 10/22/24 07:00 10/22/24 08:00 10/22/24 12:00 Temperature 98.1 F 98.1 F Pulse Rate Pulse Rate [Brachial] 73 73 Respiratory Rate 17 18 Blood Pressure Blood Pressure [Left Arm] Blood Pressure [Right Arm] 162/74 147/67 O2 Sat by Pulse Oximetry 95 96 Oxygen Delivery Method Room Air Room Air Room Air FIO2% 10/22/24 16:00 10/22/24 19:00 10/22/24 20:00 Temperature 98.3 F 97.6 F Pulse Rate Pulse Rate [Brachial] 78 82 Respiratory Rate 18 20 Blood Pressure Blood Pressure [Left Arm] Blood Pressure [Right Arm] 162/72 145/65 O2 Sat by Pulse Oximetry 94 L 95 Oxygen Delivery Method Room Air Room Air Room Air FIO2% 10/23/24 00:00 10/23/24 04:00 10/23/24 07:48 Temperature 97.7 F 99.0 F 98.1 F Pulse Rate Pulse Rate [Brachial] 82 74 79 Respiratory Rate 24 20 18 Blood Pressure Blood Pressure [Left Arm] Blood Pressure [Right Arm] 179/79 155/74 157/77 O2 Sat by Pulse Oximetry 96 93 L 93 L Oxygen Delivery Method Room Air Room Air Room Air FIO2% 10/23/24 09:15 10/23/24 08:10 Temperature Pulse Rate Pulse Rate [Brachial] Respiratory Rate Blood Pressure Blood Pressure [Left Arm] Blood Pressure [Right Arm] O2 Sat by Pulse Oximetry Oxygen Delivery Method Room Air Room Air FIO2% Labs: Laboratory Last Values WBC 10.5 X10^3/uL (3.6-10.0) H 10/23/24 05:11 RBC 2.44 X10^6/uL (4.7-6.0) L 10/23/24 05:11 Hgb 7.1 g/dL (13.5-18.0) L 10/23/24 05:11 Hct 21.0 % (42.0-54.0) L 10/23/24 05:11 MCV 86.0 fL (80.0-100.0) 10/23/24 05:11 MCH 28.9 pg (27.0-34.0) 10/23/24 05:11 MCHC 33.6 g/dL (33.0-35.0) 10/23/24 05:11 RDW 16.7 % (11.6-16.5) H 10/23/24 05:11 Plt Count 790 X10^3/uL (150.0-450.0) H 10/23/24 05:11 Plt Count Comment Increased (ADEQUATE) 10/18/24 12:08 MPV 6.0 fL (7.4-11.0) L 10/23/24 05:11 Neut % (Auto) 72.3 % (42.0-75.0) 10/23/24 05:11 Lymph % (Auto) 18.7 % (21.0-51.0) L 10/23/24 05:11 [place] % (Auto) 6.8 % (0.0-13.0) 10/23/24 05:11 Eos % (Auto) 1.3 % (0.9-2.9) 10/23/24 05:11 Baso % (Auto) 0.9 % (0.2-1.0) 10/23/24 05:11 Neut # (Auto) 7.6 x10^3/uL (2.2-4.8) H 10/23/24 05:11 Lymph # (Auto) 2.0 X10^3/uL (1.3-2.9) 10/23/24 05:11 [place] # (Auto) 0.7 x10^3/uL (0.3-0.8) 10/23/24 05:11 Eos # (Auto) 0.1 x10^3/uL (0.0-0.2) 10/23/24 05:11 Baso # (Auto) 0.1 X10^3/uL (0.0-0.1) 10/23/24 05:11 Absolute Nucleated RBC 0.0 /100WBC 10/23/24 05:11 Total Counted 100 10/18/24 12:08 Neutrophils % (Manual) 91 % (39-76) H 10/18/24 12:08 Lymphocytes % (Manual) 5 % (13-43) L 10/18/24 12:08 Monocytes % (Manual) 4 % (4-9) 10/18/24 12:08 Plt Morphology Comment Normal (NORMAL) 10/18/24 12:08 RBC Morphology Normal (NORMAL) 10/18/24 12:08 PT 15.9 SECONDS (11.8-14.3) 10/18/24 12:08 INR Target Range - 10/18/24 12:08 INR 1.30 (0.8-1.3) 10/18/24 12:08 APTT 42.4 SECONDS (22.9-36.5) H 10/18/24 12:08 PTT Comment - 10/18/24 12:08 Sodium 132 mmol/L (136-145) L 10/23/24 05:11 Corrected Sodium TNP 10/23/24 05:11 Potassium 3.9 mmol/L (3.5-5.1) 10/23/24 05:11 Chloride 100 mmol/L (98-107) 10/23/24 05:11 Carbon Dioxide 23.8 mmol/L (21-32) 10/23/24 05:11 BUN 7 mg/dL (7-18) 10/23/24 05:11 Creatinine 0.60 mg/dL (0.70-1.30) L 10/23/24 05:11 Est GFR (MDRD) Af Amer > 60 (>60) 10/23/24 05:11 Est GFR (MDRD) Non-Af > 60 (>60) 10/23/24 05:11 Glucose 94 mg/dL (65-99) 10/23/24 05:11 Calcium 7.7 mg/dL (8.5-10.1) L 10/23/24 05:11 Corrected Calcium 9.7 mg/dL (8.5-10.1) 10/23/24 05:11 Magnesium 2.0 mg/dL (2.0-2.9) 10/20/24 05:44 Total Bilirubin 0.20 mg/dL (0.2-1.0) 10/23/24 05:11 AST 50 Units/L (15-37) H 10/23/24 05:11 ALT 45 Units/L (12-78) 10/23/24 05:11 Alkaline Phosphatase 67 Units/L (46-116) 10/23/24 05:11 Total Protein 5.7 g/dL (6.4-8.2) L 10/23/24 05:11 Albumin 1.5 g/dL (3.4-5.0) L 10/23/24 05:11 Globulin 4.2 g/dL (2.5-4.5) 10/23/24 05:11 Albumin/Globulin Ratio 0.4 Ratio (1.1-2.1) L 10/23/24 05:11 Blood Type A POSITIVE 10/23/24 05:11 Antibody Screen Negative 10/23/24 05:11 Reason For Visit: LEFT BELOW THE KNEE AMPUTION GANGRENOUS LEFT FT Discharge Date Discharge Date: 10/23/24 Discharge Diagnosis All Active Problems (Updated 08/25/24 @ 20:30 by Angelo Alfonso) Chronic ischemic heart disease (Acute) Gastro-esophageal reflux disease without esophagitis (Acute) Hyperlipidemia (Acute) Essential (primary) hypertension (Acute) Atherosclerosis of [place] arteries of extremities with rest pain, right leg (Acute) Atherosclerosis of [place] arteries of extremities with rest pain, left leg (Acute) Plan of Treatment: Continue with present treatment and follow up plan. Pt is to keep follow up appointment as instructed and take medications as ordered. Discharge Medications Discharge Medications: Iodinated Contrast Media [IVP DYE] Allergy (Verified 01/25/24 22:29) Discharge Disposition Assessment: No distress noted. Discharge Plan Discharge Plan Hospital Course: This is a 69-year-old male he will multiple history of revascularization of lower extremities and ultimately failed of the left leg resulting in gangrenous changes of the left foot. On October 18, 2024 taken to the operative suite and underwent uncomplicated left below-knee amputation. Hemoglobin at time was 7.3. He has had good pain control. It should be noted at the time of the amputation there was an abscess in the anterior tibial compartment which required drainage. Manpreet-Grissom drain left in place and patient kept on IV antibiotics. Patient has been accepted for inpatient rehab. We will leave the dressing in place with a drain in place. He will see me in 1 week to have the drain removed. He will be on usual medications as above. He also will be given ciprofloxacin 5 mg twice daily x 1 week and Percocet 5 to go tablets 1 over 6 hour PRN Pain. He did not require transfusion and has been hemodynamically stable. Hemoglobin is 7.1 on the day of discharge. Patient Disposition: Disch/Tx to Rehabilitation Fac Condition: Stable Health Concerns: Post Hospitalization: new medications and changes needed to prevent readmission or further decline. Pt educated and given instructions on all concerns. Care Plan Goals: Problem: Infection Goal: Temperature within normal limits. Resolved infection. Instructions: Follow provided instructions. Follow up with primary physician as directed. Contact primary care physician or report to the closest Emergency Room if condition worsens. Plan of Treatment: Continue with present treatment and follow up plan. Pt is to keep follow up appointment as instructed and take medications as ordered. Assessment: No distress noted. Prescription drug monitoring program results: PDMP reviewed with concerns identified Prescriptions: New ciprofloxacin HCl [Cipro] 500 mg tablet 500 mg PO BID Qty: 14 0RF Continued albuterol sulfate 90 mcg/actuation HFA aerosol inhaler 2 puff INHALATION Q6H PRN Xarelto 2.5 mg tablet 2.5 mg PO BID Qty: 60 6RF oxycodone-acetaminophen [Percocet] 5-325 mg tablet 1 tab PO Q6H MDD 4 PRNQty: 30 0RF atorvastatin 80 mg tablet 80 mg PO QDAY cilostazol 50 mg tablet 50 mg PO BID metoprolol succinate 50 mg tablet extended release 24 hr 50 mg PO QDAY lisinopril 20 mg tablet 20 mg PO QDAY aspirin 81 mg Tablet,Delayed Release (Dr/Ec) 81 mg PO DAILY Breztri Aerosphere 160-9-4.8 mcg/actuation HFA aerosol inhaler 2 inh INHALATION BID Orders to Discharge Patient Discharge Orders: Discharge (Routine); Ordered 10/23/24 Ordered By: Angelo Alfonso Follow ups/Referrals Follow ups/Referrals: Angelo Alfonso [Primary Care Provider] - 10/29/24 10:30 am Instructions Instructions: Stump and Prosthesis Care, Living With an Amputation, Phantom Limb Pain, Gangrene Stand Alone Forms: Find Help Web Site, Post Hospital Follow Up Care
[2024-10-23 12:13] VITALS: BP 174/81; PULSE 77; TEMP 98.2; O2SAT 97
== END 2024-10-23 13:15 | DRG 240 ==
LOC: MED/SURG 09:39
PROVIDERS: ADMIT Surgery; ATTEND Surgery
DX: L02.416 Cutaneous abscess of left lower limb; E87.1 Hypo-osmolality and hyponatremia; E83.42 Hypomagnesemia; I25.10 Atherosclerotic heart disease of native coronary artery without angina pectoris; E87.6 Hypokalemia; E78.5 Hyperlipidemia, unspecified; I10 Essential (primary) hypertension; R79.1 Abnormal coagulation profile; B96.29 Other Escherichia coli [E. coli] as the cause of diseases classified elsewhere; Z16.11 Resistance to penicillins; I96 Gangrene, not elsewhere classified; R26.89 Other abnormalities of gait and mobility